=== PATIENT | female | born 1945 | race African-American/Black ===

== ENCOUNTER 2016-07-05 17:11 | Inpatient (IN) | payer OTHER ==
[~2016-07-05] VITALS: Ht 149.9 cm; Wt 124.0 kg
[~2016-07-05 17:11] MED LIST: ADVAIR 100/501 DISK; ADVAIR 250/501 DISK IH; ALDACTONE12.5 MG PO; ALPHAGAN P100 DROP/5 BOTH EYES; ASPIRIN325 MG PO; AZOPT 1% O200 DROP/1 BOTH EYES; AZOPT 1% O200 DROP/1 RIGHT EYE; Advair HFA 115/21 IH; Aldactone PO; DUONEB 2.5-0.5 M3 ML IH; HUMULIN N100 UNIT/2 SC; HUMULIN N100 UNITS/ SC; HYDROCODON-ACE1 EAC7 PO; K-DUR20 MEQ PO; KEFLEX500 MG PO; LASIX40 MG PO; LASIX80 MG PO; LUMIGAN 0.50 DROP/2.; LUMIGAN 0.50 DROP/2. BOTH EYES; LUMIGAN 0.50 DROP/22 BOTH EYES; LYRICA50 MG PO; MACROBID100 MG PO; NOVOLIN N100 UNIT/1 SQ; NOVOLIN N100 UNITS/ SC; NOVOLIN,HU100 UNITS/ SC; NOVOLOG100 UNIT/3 SQ; PREDNISONE10 MG PO; PREDNISONE5 MG PO; PRILOSEC20 MG PO; PRILOSEC40 MG PO; PROAIR HFA8.5 GM IH; PROVENTIL,2.5 MG/0.5 IH; PriLOSEC PO; Proventil,Ventolin 0 IH; TRAVATAN 0.004%5 ML BOTH EYES; Tylenol Regular Stre PO; VERAPAMIL HCL240 MG PO; VICODIN 5-5001 EACH PO; Vicodin,Lortab 5/500 PO; Zithromax
[2016-07-05 18:59] LABS: CHLORIDE 105 mEq/L (99-109); POTASSIUM 3.2 mEq/L (3.7-5.4); SODIUM 143 mEq/L (136-147)
[2016-07-05 19:01] LABS: GLUCOSE 135 mg/dL (70-99)
[2016-07-05 19:02] LABS: ANION GAP 12 MEQ/L (2-14)
[2016-07-05 19:03] LABS: TOTAL BILIRUBIN 0.6 mg/dL (0.0-1.0)
[2016-07-05 19:04] LABS: ALKALINE PHOSPHATASE 141 IU/L (3-129)
[2016-07-05 19:05] LABS: GFR ESTIMATE (CALCULATED) > 59 mL/min/
[2016-07-05 19:06] LABS: UREA NITROGEN (BUN) 11 mg/dL (9-23)
[2016-07-05 19:10] LABS: TROP-I INTERPRETATION NEGATIVE; TROPONIN-I < 0.01 ng/mL (0.0-0.30)
[2016-07-05 19:12] LABS: EOSINOPHIL (%) 1.1 % (0-5); EOSINOPHIL COUNT 0.1 K/uL (0-0.3); HEMATOCRIT 29.5 % (36.0-46.0); IMMATURE GRANULOCYTE (%) 0.5 % (0.0-0.7); IMMATURE GRANULOCYTE COUNT 0.1 K/uL; LYMPHOCYTE COUNT 1.3 K/uL (1.0-2.8); MCH 20.1 PG (29.0-34.0); MCHC 30.2 G/DL (30.0-36.0); MCV 66.7 FL (83-99); MEAN PLAT.VOLUME 11.2 uM^3 (9.5-12.4); MONOCYTE (%) 6.9 % (3-12); MONOCYTE COUNT 0.9 K/uL (0-0.8); NEUTROPHIL (%) 81.2 % (45-76); PLATELET COUNT 299 K/uL (156-360); RBC DIS.WIDTH-CV 19.5 % (11.8-14.6); RBC DIS.WIDTH-SD 45.6 % (39-53); RED BLOOD COUNT 4.42 M/uL (3.80-5.20); WHITE BLOOD COUNT 12.4 K/uL (4.1-10.2)
[2016-07-05 21:18] LABS: D-DIMER ELISA 0.71 mg/L FEU (< 0.57)
[2016-07-05] MEDS ORDERED: PREDNISONE5 MG PO (22:20)
[2016-07-05] MEDS ORDERED: HUMULIN N100 UNITS/ SC ×2 (22:20)
[2016-07-05] MEDS ORDERED: LATANOPROST2.5 ML BOTH EYES (22:22)
[2016-07-05] MEDS ORDERED: K-DUR20 MEQ PO (22:23)
[2016-07-05] MEDS ORDERED: ALDACTONE25 MG PO (22:24)
[2016-07-05] MEDS ORDERED: HUMALOG100 UNIT/2 SC (22:25)
[2016-07-06] VITALS (7 sets, daily range): BP systolic 111–167; BP diastolic 55–72
[2016-07-06 05:35] LABS: TROP-I INTERPRETATION NEGATIVE; TROPONIN-I < 0.01 ng/mL (0.0-0.30)
[2016-07-06 05:39] LABS: ALKALINE PHOSPHATASE 121 IU/L (3-129); ANION GAP 8 MEQ/L (2-14); CHLORIDE 105 MEQ/L (99-109); GFR ESTIMATE (CALCULATED) > 59 mL/min/; SAMPLE HEMOLYSIS CHECK 2; SAMPLE ICTERIC CHECK 0; SAMPLE LIPEMIA CHECK 0; SODIUM 142 MEQ/L (136-147); TOTAL BILIRUBIN 0.6 MG/DL (0.0-1.0); UREA NITROGEN (BUN) 11 mg/dL (9-23)
[2016-07-06 05:50] LABS: GLUCOSE 245 mg/dL (70-99); POTASSIUM 4.1 MEQ/L (3.7-5.4)
[2016-07-06 06:21] LABS: HEMATOCRIT 26.2 % (36.0-46.0); MCH 20.2 PG (29.0-34.0); MCHC 30.2 G/DL (30.0-36.0); RBC DIS.WIDTH-CV 19.3 % (11.8-14.6); RBC DIS.WIDTH-SD 45.5 % (39-53); RED BLOOD COUNT 3.91 M/uL (3.80-5.20); WHITE BLOOD COUNT 11.4 K/uL (4.1-10.2)
[2016-07-06 06:56] LABS: PLATELET COUNT 264 K/uL (156-360)
[2016-07-06 07:07] LABS: POINT-OF-CARE METER ID UU14149397
[2016-07-06 11:49] LABS: POINT-OF-CARE METER ID UU14149397
[2016-07-06 13:19] LABS: TROP-I INTERPRETATION NEGATIVE; TROPONIN-I 0.02 ng/mL (0.0-0.30)
[2016-07-06 16:40] LABS: POINT-OF-CARE METER ID UU14149397
[2016-07-06 21:38] LABS: POINT-OF-CARE METER ID UU14149397
[2016-07-07 04:00] VITALS: BP 133/63
[2016-07-07 07:02] LABS: POINT-OF-CARE METER ID UU14188577
[2016-07-07 08:17] VITALS: BP 153/62
[2016-07-07 11:44] VITALS: BP 140/77
[2016-07-07 16:10] VITALS: BP 121/56
[2016-07-07 19:24] VITALS: BP 148/68
[2016-07-07 23:34] VITALS: BP 157/66
[2016-07-08 04:00] VITALS: BP 123/60
[2016-07-08 05:45] LABS: EOSINOPHIL (%) 1.5 % (0-5); EOSINOPHIL COUNT 0.2 K/uL (0-0.3); HEMATOCRIT 26.8 % (36.0-46.0); IMMATURE GRANULOCYTE (%) 0.8 % (0.0-0.7); IMMATURE GRANULOCYTE COUNT 0.1 K/uL; INSTRUMENT ABS NEUTROPHIL CT 9.5 K/uL; LYMPHOCYTE COUNT 1.6 K/uL (1.0-2.8); MCH 19.9 PG (29.0-34.0); MCHC 29.1 G/DL (30.0-36.0); MCV 68.4 FL (83-99); MEAN PLAT.VOLUME 11.1 uM^3 (9.5-12.4); MONOCYTE COUNT 1.6 K/uL (0-0.8); NEUTROPHIL (%) 73.4 % (45-76); NEUTROPHIL COUNT 9.5 K/uL (1.8-6.4); NRBC (%) 0.3 /100 WBC (0-0); PLATELET COUNT 280 K/uL (156-360); RBC DIS.WIDTH-SD 46.5 % (39-53); RED BLOOD COUNT 3.92 M/uL (3.80-5.20)
[2016-07-08 06:06] LABS: ANION GAP 8 MEQ/L (2-14); CHLORIDE 99 MEQ/L (99-109); GFR ESTIMATE (CALCULATED) 57 mL/min/; GLUCOSE 64 mg/dL (70-99); SAMPLE HEMOLYSIS CHECK 0; SAMPLE ICTERIC CHECK 0; SAMPLE LIPEMIA CHECK 0; SODIUM 136 MEQ/L (136-147); UREA NITROGEN (BUN) 18 mg/dL (9-23)
[2016-07-08 09:28] VITALS: BP 124/57
[2016-07-08 16:51] VITALS: BP 139/68
[2016-07-08 19:37] VITALS: BP 171/73
[2016-07-08 23:23] VITALS: BP 165/79
[2016-07-09 03:00] VITALS: BP 168/69
[2016-07-09 06:00] LABS: EOSINOPHIL (%) 1.2 % (0-5); EOSINOPHIL COUNT 0.2 K/uL (0-0.3); HEMATOCRIT 26.9 % (36.0-46.0); IMMATURE GRANULOCYTE (%) 0.8 % (0.0-0.7); IMMATURE GRANULOCYTE COUNT 0.1 K/uL; INSTRUMENT ABS NEUTROPHIL CT 10.4 K/uL; MCH 20.4 PG (29.0-34.0); MCHC 29.7 G/DL (30.0-36.0); MCV 68.4 FL (83-99); MEAN PLAT.VOLUME 10.9 uM^3 (9.5-12.4); MONOCYTE COUNT 1.2 K/uL (0-0.8); NEUTROPHIL (%) 81.1 % (45-76); NEUTROPHIL COUNT 10.4 K/uL (1.8-6.4); NRBC (%) 0.5 /100 WBC (0-0); PLATELET COUNT 283 K/uL (156-360); RBC DIS.WIDTH-CV 18.9 % (11.8-14.6); RBC DIS.WIDTH-SD 46.7 % (39-53); RED BLOOD COUNT 3.93 M/uL (3.80-5.20); WHITE BLOOD COUNT 12.8 K/uL (4.1-10.2)
[2016-07-09 06:25] LABS: ANION GAP 7 MEQ/L (2-14); CHLORIDE 95 MEQ/L (99-109); GFR ESTIMATE (CALCULATED) > 59 mL/min/; POTASSIUM 4.8 MEQ/L (3.7-5.4); SAMPLE HEMOLYSIS CHECK 0; SAMPLE ICTERIC CHECK 0; SAMPLE LIPEMIA CHECK 0; SODIUM 136 MEQ/L (136-147); UREA NITROGEN (BUN) 19 mg/dL (9-23)
[2016-07-09 06:28] LABS: GLUCOSE 189 mg/dL (70-99)
[2016-07-09 10:23] VITALS: BP 135/54
[2016-07-09 11:48] VITALS: BP 134/58
[2016-07-09] MEDS ORDERED: KEFLEX500 MG PO (12:46)
[2016-07-09] MEDS ORDERED: MUPIROCIN15 GM TP (12:46)
== END 2016-07-09 15:46 | disposition home or self-care (01) | DRG 313 ==
LOC: EME 17:11 → EDOF 21:27 → 3EAST 21:27
PROVIDERS: Emergency Medicine; Internal Medicine
DX: R07.89 Other chest pain (principal); L03.115 Cellulitis of right lower limb; L03.116 Cellulitis of left lower limb; E11.649 Type 2 diabetes mellitus with hypoglycemia without coma; I13.10 Hypertensive heart and chronic kidney disease without heart failure, with stage 1 through stage 4 chronic kidney disease, or unspecified chronic kidney disease; I50.9 Heart failure, unspecified; E11.22 Type 2 diabetes mellitus with diabetic chronic kidney disease; N18.9 Chronic kidney disease, unspecified; F32.9 Major depressive disorder, single episode, unspecified; I87.2 Venous insufficiency (chronic) (peripheral); L97.819 Non-pressure chronic ulcer of other part of right lower leg with unspecified severity; G47.33 Obstructive sleep apnea (adult) (pediatric); J44.9 Chronic obstructive pulmonary disease, unspecified; I25.10 Atherosclerotic heart disease of native coronary artery without angina pectoris; J45.909 Unspecified asthma, uncomplicated; D64.9 Anemia, unspecified; F41.9 Anxiety disorder, unspecified; E78.5 Hyperlipidemia, unspecified; E87.6 Hypokalemia; K21.9 Gastro-esophageal reflux disease without esophagitis; E66.01 Morbid (severe) obesity due to excess calories; I89.0 Lymphedema, not elsewhere classified; M19.90 Unspecified osteoarthritis, unspecified site; I25.2 Old myocardial infarction; Z79.4 Long term (current) use of insulin; Z79.82 Long term (current) use of aspirin; Z68.43 Body mass index [BMI] 50.0-59.9, adult; Z91.041 Radiographic dye allergy status; Z87.891 Personal history of nicotine dependence
CPT/HCPCS: 71010; 73590; 80048; 80053; 82948; 83605; 83880; 84484; 85025; 85027; 85379; 87040; 93005; 94640; 94640 76; 94760; 94799; 99202; 99281; 99285; J0295; J0696; J1650; J1815; J2405; J7050; J7512

== ENCOUNTER 2016-08-14 11:37 | Inpatient (IN) | payer OTHER ==
[~2016-08-14] VITALS: Ht 149.9 cm; Wt 114.2 kg
[2016-08-14 11:05] VITALS: BP 170/76
[~2016-08-14 11:37] MED LIST changes: +ALDACTONE25 MG PO; +HUMALOG100 UNIT/2 SC; +LATANOPROST2.5 ML BOTH EYES; +MUPIROCIN15 GM TP
[2016-08-14 13:29] LABS: POINT-OF-CARE METER ID UU13113702
[2016-08-14 13:41] LABS: CHLORIDE 103 mEq/L (99-109); POTASSIUM 3.1 mEq/L (3.7-5.4); SODIUM 139 mEq/L (136-147)
[2016-08-14 13:43] LABS: GLUCOSE 175 mg/dL (70-99)
[2016-08-14 13:44] LABS: ANION GAP 9 MEQ/L (2-14)
[2016-08-14 13:46] LABS: HEMATOCRIT 29.9 % (36.0-46.0); MCH 19.7 PG (29.0-34.0); MCHC 30.1 G/DL (30.0-36.0); MCV 65.4 FL (83-99); RBC DIS.WIDTH-CV 18.6 % (11.8-14.6); RBC DIS.WIDTH-SD 42.5 % (39-53); RED BLOOD COUNT 4.57 M/uL (3.80-5.20); WHITE BLOOD COUNT 12.7 K/uL (4.1-10.2)
[2016-08-14 13:47] LABS: GFR ESTIMATE (CALCULATED) > 59 mL/min/; UREA NITROGEN (BUN) 21 mg/dL (9-23)
[2016-08-14 13:51] LABS: TROP-I INTERPRETATION NEGATIVE; TROPONIN-I < 0.01 ng/mL (0.0-0.30)
[2016-08-14 14:50] LABS: PLAT.SUFFICIENCY ADEQUATE; PLATELET COUNT 291 K/uL (156-360)
[2016-08-14 17:00] LABS: POINT-OF-CARE METER ID UU13113702
[2016-08-14 20:37] LABS: TROP-I INTERPRETATION NEGATIVE; TROPONIN-I < 0.01 ng/mL (0.0-0.30)
[2016-08-14 23:12] VITALS: BP 170/76
[2016-08-15 04:05] VITALS: BP 169/73
[2016-08-15 06:19] LABS: TROP-I INTERPRETATION NEGATIVE; TROPONIN-I < 0.01 ng/mL (0.0-0.30)
[2016-08-15 07:15] LABS: HEMATOCRIT 30.9 % (36.0-46.0); MCH 19.5 PG (29.0-34.0); MCHC 30.1 G/DL (30.0-36.0); MCV 64.8 FL (83-99); NRBC (%) 0.2 /100 WBC (0-0); RBC DIS.WIDTH-CV 18.2 % (11.8-14.6); RBC DIS.WIDTH-SD 41.1 % (39-53); RED BLOOD COUNT 4.77 M/uL (3.80-5.20); WHITE BLOOD COUNT 12.9 K/uL (4.1-10.2)
[2016-08-15 07:16] LABS: ANION GAP 13 MEQ/L (2-14); CHLORIDE 101 MEQ/L (99-109); GFR ESTIMATE (CALCULATED) > 59 mL/min/; SAMPLE HEMOLYSIS CHECK 0; SAMPLE ICTERIC CHECK 0; SAMPLE LIPEMIA CHECK 0; SODIUM 144 MEQ/L (136-147); UREA NITROGEN (BUN) 16 mg/dL (9-23)
[2016-08-15 07:17] LABS: GLUCOSE 104 mg/dL (70-99); POTASSIUM 4.1 MEQ/L (3.7-5.4)
[2016-08-15 07:26] VITALS: BP 147/68
[2016-08-15 07:42] LABS: MEAN PLAT.VOLUME 11.2 uM^3 (9.5-12.4); PLAT.SUFFICIENCY ADEQUATE; PLATELET COUNT 303 K/uL (156-360)
[2016-08-15 11:57] VITALS: BP 116/51
[2016-08-15 16:07] VITALS: BP 112/51
[2016-08-15 19:53] VITALS: BP 119/58
[2016-08-16 00:28] VITALS: BP 120/58
[2016-08-16 05:47] VITALS: BP 134/78
[2016-08-16 06:17] LABS: EOSINOPHIL (%) 0.7 % (0-5); EOSINOPHIL COUNT 0.1 K/uL (0-0.3); IMMATURE GRANULOCYTE (%) 0.6 % (0.0-0.7); IMMATURE GRANULOCYTE COUNT 0.1 K/uL; INSTRUMENT ABS NEUTROPHIL CT 11.1 K/uL; LYMPHOCYTE COUNT 1.2 K/uL (1.0-2.8); MCH 19.8 PG (29.0-34.0); MCV 63.9 FL (83-99); MONOCYTE (%) 12.1 % (3-12); MONOCYTE COUNT 1.7 K/uL (0-0.8); NEUTROPHIL (%) 77.9 % (45-76); NEUTROPHIL COUNT 11.1 K/uL (1.8-6.4); PLATELET COUNT 318 K/uL (156-360); RBC DIS.WIDTH-CV 17.6 % (11.8-14.6); RBC DIS.WIDTH-SD 39.5 % (39-53); RED BLOOD COUNT 4.54 M/uL (3.80-5.20); WHITE BLOOD COUNT 14.2 K/uL (4.1-10.2)
[2016-08-16 06:21] LABS: ANION GAP 8 MEQ/L (2-14); CHLORIDE 93 MEQ/L (99-109); GFR ESTIMATE (CALCULATED) > 59 mL/min/; IRON 24 MCG/DL (35-150); POTASSIUM 3.6 MEQ/L (3.7-5.4); SAMPLE HEMOLYSIS CHECK 0; SAMPLE ICTERIC CHECK 0; SAMPLE LIPEMIA CHECK 0; SODIUM 138 MEQ/L (136-147); UREA NITROGEN (BUN) 17 mg/dL (9-23)
[2016-08-16 06:26] LABS: GLUCOSE 216 mg/dL (70-99)
[2016-08-16 08:03] LABS: POINT-OF-CARE USER ID NUTSLF44
[2016-08-16 08:15] VITALS: BP 158/70
[2016-08-16 12:12] VITALS: BP 131/60
[2016-08-16 12:18] LABS: POINT-OF-CARE USER ID NUTSLF44
[2016-08-16 12:33] LABS: POINT-OF-CARE METER ID UU13113781
[2016-08-16 16:14] VITALS: BP 119/58
[2016-08-16 20:30] VITALS: BP 129/62
[2016-08-17] VITALS (7 sets, daily range): BP systolic 103–130; BP diastolic 53–78
[2016-08-17 05:53] LABS: ANION GAP 11 MEQ/L (2-14); CHLORIDE 93 MEQ/L (99-109); GFR ESTIMATE (CALCULATED) > 59 mL/min/; GLUCOSE 224 mg/dL (70-99); POTASSIUM 3.8 MEQ/L (3.7-5.4); SAMPLE HEMOLYSIS CHECK 0; SAMPLE ICTERIC CHECK 0; SAMPLE LIPEMIA CHECK 0; SODIUM 136 MEQ/L (136-147); UREA NITROGEN (BUN) 17 mg/dL (9-23)
[2016-08-17 06:11] LABS: EOSINOPHIL (%) 0.8 % (0-5); EOSINOPHIL COUNT 0.1 K/uL (0-0.3); HEMATOCRIT 28.9 % (36.0-46.0); IMMATURE GRANULOCYTE (%) 0.8 % (0.0-0.7); IMMATURE GRANULOCYTE COUNT 0.1 K/uL; INSTRUMENT ABS NEUTROPHIL CT 10.9 K/uL; LYMPHOCYTE COUNT 1.6 K/uL (1.0-2.8); MCH 19.9 PG (29.0-34.0); MCHC 31.1 G/DL (30.0-36.0); MCV 63.8 FL (83-99); MEAN PLAT.VOLUME 10.7 uM^3 (9.5-12.4); MONOCYTE (%) 10.7 % (3-12); MONOCYTE COUNT 1.5 K/uL (0-0.8); NEUTROPHIL (%) 76.6 % (45-76); NEUTROPHIL COUNT 10.9 K/uL (1.8-6.4); NRBC (%) 0.1 /100 WBC (0-0); PLATELET COUNT 298 K/uL (156-360); RBC DIS.WIDTH-CV 17.8 % (11.8-14.6); RBC DIS.WIDTH-SD 39.7 % (39-53); RED BLOOD COUNT 4.53 M/uL (3.80-5.20); WHITE BLOOD COUNT 14.3 K/uL (4.1-10.2)
[2016-08-17 08:32] LABS: FERRITIN 148 NG/ML (10-291)
[2016-08-17 09:03] LABS: POINT-OF-CARE METER ID UU13113781
[2016-08-17 20:48] LABS: POINT-OF-CARE METER ID UU13113698
[2016-08-18 03:31] VITALS: BP 135/62
[2016-08-18 07:24] LABS: HEMATOCRIT 29.1 % (36.0-46.0); MCH 20.1 PG (29.0-34.0); MCHC 30.9 G/DL (30.0-36.0); MEAN PLAT.VOLUME 10.6 uM^3 (9.5-12.4); NRBC (%) 0.4 /100 WBC (0-0); PLATELET COUNT 308 K/uL (156-360); RBC DIS.WIDTH-CV 18.3 % (11.8-14.6); RBC DIS.WIDTH-SD 41.2 % (39-53); RED BLOOD COUNT 4.48 M/uL (3.80-5.20); WHITE BLOOD COUNT 13.7 K/uL (4.1-10.2)
[2016-08-18 07:33] LABS: POINT-OF-CARE METER ID UU14162508
[2016-08-18 07:42] LABS: ANION GAP 8 MEQ/L (2-14); CHLORIDE 99 MEQ/L (99-109); GFR ESTIMATE (CALCULATED) > 59 mL/min/; POTASSIUM 3.9 MEQ/L (3.7-5.4); SAMPLE HEMOLYSIS CHECK 0; SAMPLE ICTERIC CHECK 0; SAMPLE LIPEMIA CHECK 0; SODIUM 142 MEQ/L (136-147); UREA NITROGEN (BUN) 14 mg/dL (9-23)
[2016-08-18 07:43] LABS: GLUCOSE 45 mg/dL (70-99)
[2016-08-18 07:55] VITALS: BP 127/60
[2016-08-18 08:50] LABS: POINT-OF-CARE METER ID UU14162508
[2016-08-18 09:44] LABS: POINT-OF-CARE METER ID UU14162508
[2016-08-18 12:28] LABS: POINT-OF-CARE METER ID UU14162508
[2016-08-18 12:52] VITALS: BP 151/71
[2016-08-18 15:16] LABS: POINT-OF-CARE METER ID UU14162508
[2016-08-18 15:35] LABS: POINT-OF-CARE METER ID UU13113694
[2016-08-18 17:45] LABS: POINT-OF-CARE METER ID UU14162508
[2016-08-18 19:22] VITALS: BP 142/64
[2016-08-18 22:35] LABS: POINT-OF-CARE METER ID UU14162508
[2016-08-19 00:27] VITALS: BP 135/63
[2016-08-19 03:40] VITALS: BP 133/62
[2016-08-19 06:06] VITALS: BP 138/108
[2016-08-19 07:22] LABS: POINT-OF-CARE METER ID UU14162508
[2016-08-19 07:41] LABS: EOSINOPHIL (%) 1.7 % (0-5); EOSINOPHIL COUNT 0.2 K/uL (0-0.3); HEMATOCRIT 31.9 % (36.0-46.0); IMMATURE GRANULOCYTE (%) 0.8 % (0.0-0.7); IMMATURE GRANULOCYTE COUNT 0.1 K/uL; MCH 19.2 PG (29.0-34.0); MCHC 29.8 G/DL (30.0-36.0); MCV 64.4 FL (83-99); MEAN PLAT.VOLUME 10.3 uM^3 (9.5-12.4); MONOCYTE (%) 9.2 % (3-12); MONOCYTE COUNT 1.2 K/uL (0-0.8); NRBC (%) 0.9 /100 WBC (0-0); PLATELET COUNT 315 K/uL (156-360); RBC DIS.WIDTH-CV 18.3 % (11.8-14.6); RBC DIS.WIDTH-SD 39.6 % (39-53); RED BLOOD COUNT 4.95 M/uL (3.80-5.20); WHITE BLOOD COUNT 12.5 K/uL (4.1-10.2)
[2016-08-19 07:56] VITALS: BP 116/55
[2016-08-19 08:02] LABS: ANION GAP 8 MEQ/L (2-14); CHLORIDE 97 MEQ/L (99-109); GFR ESTIMATE (CALCULATED) > 59 mL/min/; POTASSIUM 3.8 MEQ/L (3.7-5.4); SAMPLE HEMOLYSIS CHECK 0; SAMPLE ICTERIC CHECK 0; SAMPLE LIPEMIA CHECK 0; SODIUM 139 MEQ/L (136-147); UREA NITROGEN (BUN) 14 mg/dL (9-23)
[2016-08-19 08:04] LABS: GLUCOSE 81 mg/dL (70-99)
[2016-08-19 11:13] VITALS: BP 118/56
[2016-08-19 11:26] LABS: POINT-OF-CARE METER ID UU14162508
[2016-08-19] MEDS ORDERED: PANTOPRAZOLE SO40 MG PO (11:56)
[2016-08-19] MEDS ORDERED: FEROSUL325 MG PO (11:56)
[2016-08-19] MEDS ORDERED: LISINOPRIL2.5 MG PO (11:56)
[2016-08-19] MEDS ORDERED: FUROSEMIDE80 MG PO (11:56)
== END 2016-08-19 13:30 | disposition home health service (06) | DRG 292 ==
LOC: EME 11:37 → 2EASTP 14:48 → 4EAST 14:48 → EDOF 14:48 → 4EAST 22:25 → 2EASTP 08-17 23:04
PROVIDERS: Emergency Medicine; Family Medicine; Internal Medicine Gastroenterology; Nurse Practitioner Family
DX: I50.30 Unspecified diastolic (congestive) heart failure (principal); D50.9 Iron deficiency anemia, unspecified; J44.9 Chronic obstructive pulmonary disease, unspecified; E66.01 Morbid (severe) obesity due to excess calories; Z68.43 Body mass index [BMI] 50.0-59.9, adult; E11.40 Type 2 diabetes mellitus with diabetic neuropathy, unspecified; E11.22 Type 2 diabetes mellitus with diabetic chronic kidney disease; I13.0 Hypertensive heart and chronic kidney disease with heart failure and stage 1 through stage 4 chronic kidney disease, or unspecified chronic kidney disease; I25.10 Atherosclerotic heart disease of native coronary artery without angina pectoris; L30.9 Dermatitis, unspecified; G47.33 Obstructive sleep apnea (adult) (pediatric); N18.9 Chronic kidney disease, unspecified; K21.9 Gastro-esophageal reflux disease without esophagitis; M19.90 Unspecified osteoarthritis, unspecified site; E87.6 Hypokalemia; I87.8 Other specified disorders of veins; F41.9 Anxiety disorder, unspecified; Z83.3 Family history of diabetes mellitus; I25.2 Old myocardial infarction
CPT/HCPCS: 71010; 71020; 80048; 82272; 82607; 82728; 82746; 82948; 83540; 84466; 84484; 85025; 85027; 88305; 88342 TC; 93005; 93306; 94660; 99202; 99281; 99285; J1650; J1756; J1815; J1940; J7050; J7512

== ENCOUNTER 2016-11-05 11:38 | Emergency (ER) | payer OTHER ==
[~2016-11-05] VITALS: Ht 149.9 cm; Wt 113.0 kg
[~2016-11-05 11:38] MED LIST changes: +FEROSUL325 MG PO; +FUROSEMIDE80 MG PO; +LISINOPRIL2.5 MG PO; +PANTOPRAZOLE SO40 MG PO
[2016-11-05 14:30] LABS: CHLORIDE 99 mEq/L (99-109); POTASSIUM 4.2 mEq/L (3.7-5.4); SODIUM 139 mEq/L (136-147)
[2016-11-05 14:32] LABS: GLUCOSE 202 mg/dL (70-99)
[2016-11-05 14:33] LABS: ANION GAP 11 MEQ/L (2-14); HEMATOCRIT 35.3 % (36.0-46.0); MCH 21.1 PG (29.0-34.0); MCHC 30.9 G/DL (30.0-36.0); MCV 68.3 FL (83-99); PLATELET COUNT 276 K/uL (156-360); RBC DIS.WIDTH-CV 24.4 % (11.8-14.6); RBC DIS.WIDTH-SD 57.3 % (39-53); RED BLOOD COUNT 5.17 M/uL (3.80-5.20); WHITE BLOOD COUNT 14.1 K/uL (4.1-10.2)
[2016-11-05 14:36] LABS: GFR ESTIMATE (CALCULATED) > 59 mL/min/; UREA NITROGEN (BUN) 22 mg/dL (9-23)
[2016-11-05] MEDS ORDERED: KEFLEX500 MG PO (14:50)
[2016-11-05 15:15] VITALS: BP 151/91
== END 2016-11-05 15:17 | disposition home or self-care (01) ==
LOC: EME 11:38
PROVIDERS: Nurse Practitioner Family
DX: L03.116 Cellulitis of left lower limb (principal); R60.1 Generalized edema; E66.9 Obesity, unspecified; Z86.718 Personal history of other venous thrombosis and embolism; E11.22 Type 2 diabetes mellitus with diabetic chronic kidney disease; I13.0 Hypertensive heart and chronic kidney disease with heart failure and stage 1 through stage 4 chronic kidney disease, or unspecified chronic kidney disease; N18.9 Chronic kidney disease, unspecified; I50.9 Heart failure, unspecified; Z79.4 Long term (current) use of insulin; Z79.82 Long term (current) use of aspirin; J44.9 Chronic obstructive pulmonary disease, unspecified; I25.2 Old myocardial infarction; Z88.6 Allergy status to analgesic agent; Z91.041 Radiographic dye allergy status
CPT/HCPCS: 80048; 83605; 85027; 87040; 99281; 99284

== ENCOUNTER 2017-03-23 16:29 | Inpatient (IN) | payer OTHER ==
[~2017-03-23] VITALS: Ht 149.9 cm; Wt 118.6 kg
[2017-03-23 18:28] LABS: CHLORIDE 106 mEq/L (99-109); HEMATOCRIT 29.5 % (36.0-46.0); HEMOGLOBIN 9.3 G/DL (11.9-15.5); MCH 22.3 PG (29.0-34.0); MCHC 31.5 G/DL (30.0-36.0); MCV 70.7 FL (83-99); PLATELET COUNT 260 K/uL (156-360); POTASSIUM 3.4 mEq/L (3.7-5.4); RBC DIS.WIDTH-CV 17.3 % (11.8-14.6); RBC DIS.WIDTH-SD 43.5 % (39-53); RED BLOOD COUNT 4.17 M/uL (3.80-5.20); SODIUM 140 mEq/L (136-147); WHITE BLOOD COUNT 13.1 K/uL (4.1-10.2)
[2017-03-23 18:29] LABS: GLUCOSE 259 mg/dL (70-99)
[2017-03-23 18:33] LABS: CREATININE 0.8 mg/dL (0.6-1.3); GFR ESTIMATE (CALCULATED) > 59 mL/min/
[2017-03-23 18:34] LABS: UREA NITROGEN (BUN) 14 mg/dL (9-23)
[2017-03-23 18:40] LABS: TROP-I INTERPRETATION NEGATIVE; TROPONIN-I < 0.01 ng/mL (0.0-0.30)
[2017-03-23] MEDS ORDERED: LISINOPRIL2.5 MG PO (20:36)
[2017-03-23] MEDS ORDERED: IRON325 M1 PO (20:36)
[2017-03-23] MEDS ORDERED: HYDROCODON-ACE1 EAC7 PO (20:38)
[2017-03-23] MEDS ORDERED: FUROSEMIDE80 MG PO (20:38)
[2017-03-23] MEDS ORDERED: PROTONIX40 MG PO (20:40)
[2017-03-23] MEDS ORDERED: HUMALOG100 UNIT/1 SC (20:42)
[2017-03-24] VITALS (7 sets, daily range): BP systolic 138–192; BP diastolic 59–90
[2017-03-24 08:02] LABS: BASOPHIL (%) 0.1 % (0-1); EOSINOPHIL (%) 0.1 % (0-5); HEMATOCRIT 30.4 % (36.0-46.0); HEMOGLOBIN 9.5 G/DL (11.9-15.5); IMMATURE GRANULOCYTE (%) 0.7 % (0.0-0.7); LYMPHOCYTE COUNT 0.6 K/uL (1.0-2.8); MCH 22.4 PG (29.0-34.0); MCHC 31.3 G/DL (30.0-36.0); MCV 71.7 FL (83-99); MONOCYTE (%) 4.3 % (3-12); MONOCYTE COUNT 0.5 K/uL (0-0.8); NEUTROPHIL (%) 89.8 % (45-76); NEUTROPHIL COUNT 11.1 K/uL (1.8-6.4); NRBC (%) 0.2 /100 WBC (0-0); PLATELET COUNT 273 K/uL (156-360); RBC DIS.WIDTH-CV 17.3 % (11.8-14.6); RBC DIS.WIDTH-SD 44.1 % (39-53); RED BLOOD COUNT 4.24 M/uL (3.80-5.20); WHITE BLOOD COUNT 12.4 K/uL (4.1-10.2)
[2017-03-24 08:22] LABS: CHLORIDE 100 MEQ/L (99-109); CREATININE 0.7 MG/DL (0.6-1.3); GFR ESTIMATE (CALCULATED) > 59 mL/min/; GLUCOSE 234 mg/dL (70-99); POTASSIUM 3.7 MEQ/L (3.7-5.4); SODIUM 141 MEQ/L (136-147); UREA NITROGEN (BUN) 13 mg/dL (9-23)
[2017-03-25] VITALS (14 sets, daily range): BP systolic 100–189; BP diastolic 44–107
[2017-03-25 06:40] LABS: BASOPHIL (%) 0.1 % (0-1); EOSINOPHIL COUNT 0.1 K/uL (0-0.3); HEMATOCRIT 31.7 % (36.0-46.0); HEMOGLOBIN 9.6 G/DL (11.9-15.5); IMMATURE GRANULOCYTE (%) 0.4 % (0.0-0.7); LYMPHOCYTE (%) 7.7 % (15-42); LYMPHOCYTE COUNT 1.1 K/uL (1.0-2.8); MCH 21.8 PG (29.0-34.0); MCHC 30.3 G/DL (30.0-36.0); MCV 71.9 FL (83-99); MONOCYTE (%) 10.6 % (3-12); MONOCYTE COUNT 1.6 K/uL (0-0.8); NEUTROPHIL (%) 80.2 % (45-76); NEUTROPHIL COUNT 11.8 K/uL (1.8-6.4); PLATELET COUNT 249 K/uL (156-360); RBC DIS.WIDTH-CV 17.6 % (11.8-14.6); RBC DIS.WIDTH-SD 44.5 % (39-53); RED BLOOD COUNT 4.41 M/uL (3.80-5.20); WHITE BLOOD COUNT 14.7 K/uL (4.1-10.2)
[2017-03-25 06:48] LABS: CHLORIDE 101 mEq/L (99-109); SODIUM 144 mEq/L (136-147)
[2017-03-25 06:49] LABS: GLUCOSE 197 mg/dL (70-99)
[2017-03-25 06:52] LABS: BASE EXCESS 12.8 mEq/L (-3 to +3); BICARBONATE 38.4 mEq/L (22-26); CARBOXY HGB 1.7 % (0-5); METHEMOGLOBIN 1.4 % (0-1.5); PCO2 54 mm Hg (35-45); PO2 82 mm Hg (80-100); pH 7.46 (7.35-7.45)
[2017-03-25 06:53] LABS: COMMENTS - BLOOD GASES C+; MODE RA; SITE LR
[2017-03-25 06:53] LABS: CREATININE 0.8 mg/dL (0.6-1.3); GFR ESTIMATE (CALCULATED) > 59 mL/min/
[2017-03-25 06:54] LABS: POTASSIUM 2.8 mEq/L (3.7-5.4); UREA NITROGEN (BUN) 17 mg/dL (9-23)
[2017-03-25 07:19] LABS: TROP-I INTERPRETATION NEGATIVE; TROPONIN-I < 0.01 ng/mL (0.0-0.30)
[2017-03-25 07:31] LABS: ALBUMIN 3.7 g/dL (3.2-4.8)
[2017-03-25 07:34] LABS: TOTAL PROTEIN 6.4 g/dL (6.4-8.3)
[2017-03-25 07:35] LABS: TOTAL BILIRUBIN 0.6 mg/dL (0.0-1.0)
[2017-03-25 07:37] LABS: ALKALINE PHOSPHATASE 137 IU/L (3-129)
[2017-03-25 07:39] LABS: AST (GOT) 13 IU/L (2-34); DIRECT BILIRUBIN 0.3 mg/dL (0.0-0.3)
[2017-03-25 07:40] LABS: ALT (GPT) 27 IU/L (3-49)
[2017-03-26 00:43] VITALS: BP 151/67
[2017-03-26 04:09] VITALS: BP 170/72
[2017-03-26 07:01] LABS: BASOPHIL (%) 0.2 % (0-1); EOSINOPHIL (%) 0.8 % (0-5); EOSINOPHIL COUNT 0.1 K/uL (0-0.3); HEMOGLOBIN 9.7 G/DL (11.9-15.5); IMMATURE GRANULOCYTE (%) 0.7 % (0.0-0.7); LYMPHOCYTE (%) 8.9 % (15-42); LYMPHOCYTE COUNT 1.3 K/uL (1.0-2.8); MCH 22.2 PG (29.0-34.0); MCHC 31.3 G/DL (30.0-36.0); MCV 70.9 FL (83-99); MONOCYTE COUNT 1.6 K/uL (0-0.8); NEUTROPHIL (%) 78.4 % (45-76); NEUTROPHIL COUNT 11.5 K/uL (1.8-6.4); PLATELET COUNT 255 K/uL (156-360); RBC DIS.WIDTH-CV 17.2 % (11.8-14.6); RED BLOOD COUNT 4.37 M/uL (3.80-5.20); WHITE BLOOD COUNT 14.7 K/uL (4.1-10.2)
[2017-03-26 07:10] LABS: CHLORIDE 96 MEQ/L (99-109); CREATININE 0.8 MG/DL (0.6-1.3); GFR ESTIMATE (CALCULATED) > 59 mL/min/; POTASSIUM 3.1 MEQ/L (3.7-5.4); SODIUM 142 MEQ/L (136-147); UREA NITROGEN (BUN) 15 mg/dL (9-23)
[2017-03-26 07:15] LABS: GLUCOSE 105 mg/dL (70-99)
[2017-03-26 08:37] VITALS: BP 146/66
[2017-03-26 16:28] VITALS: BP 108/53
[2017-03-26 20:30] VITALS: BP 127/60
[2017-03-27 00:04] VITALS: BP 155/69
[2017-03-27 03:53] VITALS: BP 123/60
[2017-03-27 04:56] LABS: CHLORIDE 96 mEq/L (99-109); SODIUM 139 mEq/L (136-147)
[2017-03-27 04:59] LABS: GLUCOSE 248 mg/dL (70-99); POTASSIUM 3.8 mEq/L (3.7-5.4)
[2017-03-27 05:02] LABS: CREATININE 0.9 mg/dL (0.6-1.3); GFR ESTIMATE (CALCULATED) > 59 mL/min/; UREA NITROGEN (BUN) 17 mg/dL (9-23)
[2017-03-27 08:31] VITALS: BP 144/66
[2017-03-27 16:49] VITALS: BP 110/55
[2017-03-28 00:17] VITALS: BP 136/61
[2017-03-28 07:34] VITALS: BP 122/60
[2017-03-28 07:45] LABS: CHLORIDE 91 MEQ/L (99-109); CREATININE 1.2 MG/DL (0.6-1.3); GFR ESTIMATE (CALCULATED) 57 mL/min/; GLUCOSE 206 mg/dL (70-99); POTASSIUM 4.1 MEQ/L (3.7-5.4); SODIUM 134 MEQ/L (136-147); UREA NITROGEN (BUN) 22 mg/dL (9-23)
[2017-03-28 18:36] VITALS: BP 103/53
[2017-03-28 23:25] VITALS: BP 114/56
[2017-03-29 06:25] LABS: BASOPHIL (%) 0.1 % (0-1); EOSINOPHIL (%) 1.3 % (0-5); EOSINOPHIL COUNT 0.2 K/uL (0-0.3); HEMATOCRIT 29.1 % (36.0-46.0); HEMOGLOBIN 9.1 G/DL (11.9-15.5); IMMATURE GRANULOCYTE (%) 0.6 % (0.0-0.7); LYMPHOCYTE COUNT 1.4 K/uL (1.0-2.8); MCH 21.4 PG (29.0-34.0); MCHC 31.3 G/DL (30.0-36.0); MCV 68.5 FL (83-99); MONOCYTE (%) 10.4 % (3-12); MONOCYTE COUNT 1.5 K/uL (0-0.8); NEUTROPHIL (%) 77.6 % (45-76); NEUTROPHIL COUNT 11.1 K/uL (1.8-6.4); PLATELET COUNT 252 K/uL (156-360); RBC DIS.WIDTH-CV 16.2 % (11.8-14.6); RBC DIS.WIDTH-SD 39.8 % (39-53); RED BLOOD COUNT 4.25 M/uL (3.80-5.20); WHITE BLOOD COUNT 14.4 K/uL (4.1-10.2)
[2017-03-29 06:40] LABS: CHLORIDE 91 MEQ/L (99-109); GFR ESTIMATE (CALCULATED) 36 mL/min/; GLUCOSE 164 mg/dL (70-99); POTASSIUM 3.7 MEQ/L (3.7-5.4); SODIUM 136 MEQ/L (136-147); UREA NITROGEN (BUN) 30 mg/dL (9-23)
[2017-03-29 06:45] LABS: CREATININE 1.8 MG/DL (0.6-1.3)
[2017-03-29 07:30] VITALS: BP 122/60
[2017-03-29] MEDS ORDERED: NOVOLIN N100 UNITS/ SC (12:59)
[2017-03-29 16:43] VITALS: BP 110/50
== END 2017-03-29 18:22 | disposition home health service (06) | DRG 291 ==
LOC: EME 16:29 → EDOF 21:31 → 4SOUTH 21:31 → 4WEST 21:31 → 2EASTP 21:31 → ENRESERV 21:32 → 2EASTP 03-24 00:36 → ENRESERV 03-25 06:55 → CANRESERV 03-25 06:55 → ENRESERV 03-25 06:58 → 4WEST 03-25 07:19 → ENRESERV 03-25 07:19 → 4WEST 03-25 19:36 → ENRESERV 03-25 19:37 → 4SOUTH 03-26 00:13
PROVIDERS: Emergency Medicine; Family Medicine; Hospitalist
PROC: 5A09357 Assistance with Respiratory Ventilation, Less than 24 Consecutive Hours, Continuous Positive Airway Pressure (ICD-10-PCS; principal; 2017-03-25)
DX: I13.0 Hypertensive heart and chronic kidney disease with heart failure and stage 1 through stage 4 chronic kidney disease, or unspecified chronic kidney disease (principal); I50.33 Acute on chronic diastolic (congestive) heart failure; J81.0 Acute pulmonary edema; Z68.43 Body mass index [BMI] 50.0-59.9, adult; E66.01 Morbid (severe) obesity due to excess calories; G47.33 Obstructive sleep apnea (adult) (pediatric); I25.10 Atherosclerotic heart disease of native coronary artery without angina pectoris; E11.22 Type 2 diabetes mellitus with diabetic chronic kidney disease; D63.1 Anemia in chronic kidney disease; E11.622 Type 2 diabetes mellitus with other skin ulcer; R09.02 Hypoxemia; E87.6 Hypokalemia; E11.65 Type 2 diabetes mellitus with hyperglycemia; I87.8 Other specified disorders of veins; E11.621 Type 2 diabetes mellitus with foot ulcer; E78.00 Pure hypercholesterolemia, unspecified; M19.90 Unspecified osteoarthritis, unspecified site; J44.9 Chronic obstructive pulmonary disease, unspecified; K21.9 Gastro-esophageal reflux disease without esophagitis; F41.9 Anxiety disorder, unspecified; Z91.013 Allergy to seafood; I25.2 Old myocardial infarction; Z88.5 Allergy status to narcotic agent; Z91.041 Radiographic dye allergy status; Z91.19 Patient's noncompliance with other medical treatment and regimen; Z79.4 Long term (current) use of insulin; Z82.49 Family history of ischemic heart disease and other diseases of the circulatory system; Z83.3 Family history of diabetes mellitus
CPT/HCPCS: 36600; 70450; 71046; 80048; 80053; 82140; 82248; 82803; 82948; 83605; 84484; 85025; 85027; 87641; 93005; 94640; 94660; 97530 GP; 99202; 99281; 99285; J1815; J1940; J3480; J7512

== ENCOUNTER 2017-04-01 16:58 | Inpatient (IN) | payer OTHER ==
[~2017-04-01] VITALS: Ht 165.1 cm; Wt 109.2 kg
[~2017-04-01 16:58] MED LIST changes: +HUMALOG100 UNIT/1 SC; +IRON325 M1 PO; +PROTONIX40 MG PO
[2017-04-01 18:34] LABS: ALBUMIN 3.3 g/dL (3.2-4.8)
[2017-04-01 18:35] LABS: CHLORIDE 97 mEq/L (99-109); POTASSIUM 4.3 mEq/L (3.7-5.4); SODIUM 134 mEq/L (136-147)
[2017-04-01 18:37] LABS: GLUCOSE 304 mg/dL (70-99); TOTAL PROTEIN 6.8 g/dL (6.4-8.3)
[2017-04-01 18:39] LABS: TOTAL BILIRUBIN 0.8 mg/dL (0.0-1.0); TROP-I INTERPRETATION NEGATIVE; TROPONIN-I 0.03 ng/mL (0.0-0.30)
[2017-04-01 18:40] LABS: ALKALINE PHOSPHATASE 177 IU/L (3-129)
[2017-04-01 18:41] LABS: CREATININE 1.5 mg/dL (0.6-1.3); GFR ESTIMATE (CALCULATED) 44 mL/min/
[2017-04-01 18:42] LABS: AST (GOT) 12 IU/L (2-34); UREA NITROGEN (BUN) 18 mg/dL (9-23)
[2017-04-01 18:44] LABS: ALT (GPT) 23 IU/L (3-49)
[2017-04-01 18:57] LABS: BASOPHIL (%) 0.2 % (0-1); EOSINOPHIL (%) 0.2 % (0-5); EOSINOPHIL COUNT 0.1 K/uL (0-0.3); HEMATOCRIT 34.9 % (36.0-46.0); HEMOGLOBIN 10.9 G/DL (11.9-15.5); IMMATURE GRANULOCYTE (%) 1.7 % (0.0-0.7); LYMPHOCYTE (%) 3.5 % (15-42); LYMPHOCYTE COUNT 0.8 K/uL (1.0-2.8); MCH 21.8 PG (29.0-34.0); MCHC 31.2 G/DL (30.0-36.0); MCV 69.8 FL (83-99); MONOCYTE (%) 7.1 % (3-12); MONOCYTE COUNT 1.7 K/uL (0-0.8); NEUTROPHIL (%) 87.3 % (45-76); NEUTROPHIL COUNT 20.6 K/uL (1.8-6.4); NRBC (%) 0.1 /100 WBC (0-0); RBC DIS.WIDTH-SD 41.8 % (39-53); WHITE BLOOD COUNT 23.6 K/uL (4.1-10.2)
[2017-04-01 18:59] LABS: PLATELET COUNT 332 K/uL (156-360)
[2017-04-01 19:20] LABS: C DIFF TOXIN NEGATIVE (NEGATIVE)
[2017-04-02 07:50] LABS: BASOPHIL (%) 0.2 % (0-1); EOSINOPHIL (%) 0.8 % (0-5); EOSINOPHIL COUNT 0.2 K/uL (0-0.3); HEMATOCRIT 34.9 % (36.0-46.0); HEMOGLOBIN 10.9 G/DL (11.9-15.5); IMMATURE GRANULOCYTE (%) 0.6 % (0.0-0.7); LYMPHOCYTE (%) 7.5 % (15-42); LYMPHOCYTE COUNT 1.4 K/uL (1.0-2.8); MCH 21.7 PG (29.0-34.0); MCHC 31.2 G/DL (30.0-36.0); MCV 69.5 FL (83-99); MONOCYTE (%) 7.9 % (3-12); MONOCYTE COUNT 1.5 K/uL (0-0.8); NEUTROPHIL COUNT 15.4 K/uL (1.8-6.4); PLATELET COUNT 339 K/uL (156-360); RBC DIS.WIDTH-CV 17.1 % (11.8-14.6); RBC DIS.WIDTH-SD 41.8 % (39-53); RED BLOOD COUNT 5.02 M/uL (3.80-5.20); WHITE BLOOD COUNT 18.5 K/uL (4.1-10.2)
[2017-04-02 08:16] LABS: ALBUMIN 3.2 G/DL (3.2-4.8); ALKALINE PHOSPHATASE 163 IU/L (3-129); ALT (GPT) 19 IU/L (3-49); AST (GOT) 8 IU/L (2-34); CHLORIDE 96 MEQ/L (99-109); CREATININE 1.3 MG/DL (0.6-1.3); GFR ESTIMATE (CALCULATED) 52 mL/min/; GLUCOSE 206 mg/dL (70-99); POTASSIUM 4.2 MEQ/L (3.7-5.4); SODIUM 136 MEQ/L (136-147); TOTAL BILIRUBIN 0.6 MG/DL (0.0-1.0); TOTAL PROTEIN 6.6 G/DL (6.4-8.3); UREA NITROGEN (BUN) 21 mg/dL (9-23)
[2017-04-02 19:49] VITALS: BP 125/58
[2017-04-03] VITALS (7 sets, daily range): BP systolic 142–197; BP diastolic 66–88
[2017-04-03 07:39] LABS: BASOPHIL (%) 0.2 % (0-1); EOSINOPHIL (%) 1.3 % (0-5); EOSINOPHIL COUNT 0.2 K/uL (0-0.3); HEMATOCRIT 32.1 % (36.0-46.0); IMMATURE GRANULOCYTE (%) 0.9 % (0.0-0.7); LYMPHOCYTE (%) 9.9 % (15-42); LYMPHOCYTE COUNT 1.3 K/uL (1.0-2.8); MCH 21.6 PG (29.0-34.0); MCHC 31.2 G/DL (30.0-36.0); MCV 69.2 FL (83-99); MONOCYTE (%) 8.6 % (3-12); MONOCYTE COUNT 1.1 K/uL (0-0.8); NEUTROPHIL (%) 79.1 % (45-76); NEUTROPHIL COUNT 10.3 K/uL (1.8-6.4); PLATELET COUNT 367 K/uL (156-360); RBC DIS.WIDTH-SD 41.1 % (39-53); RED BLOOD COUNT 4.64 M/uL (3.80-5.20)
[2017-04-03 07:55] LABS: ALBUMIN 3.1 G/DL (3.2-4.8); ALKALINE PHOSPHATASE 142 IU/L (3-129); ALT (GPT) 13 IU/L (3-49); AST (GOT) < 7 IU/L (2-34); CHLORIDE 99 MEQ/L (99-109); CREATININE 1.1 MG/DL (0.6-1.3); GFR ESTIMATE (CALCULATED) > 59 mL/min/; GLUCOSE 184 mg/dL (70-99); POTASSIUM 3.8 MEQ/L (3.7-5.4); SODIUM 137 MEQ/L (136-147); TOTAL BILIRUBIN 0.5 MG/DL (0.0-1.0); TOTAL PROTEIN 6.4 G/DL (6.4-8.3); UREA NITROGEN (BUN) 19 mg/dL (9-23)
[2017-04-03 07:56] LABS: CHLORIDE 99 MEQ/L (99-109); GFR ESTIMATE (CALCULATED) > 59 mL/min/; GLUCOSE 185 mg/dL (70-99); POTASSIUM 3.8 MEQ/L (3.7-5.4); SODIUM 137 MEQ/L (136-147); UREA NITROGEN (BUN) 20 mg/dL (9-23)
[2017-04-04 03:23] VITALS: BP 178/80
[2017-04-04 08:00] VITALS: BP 150/74
[2017-04-04 11:54] VITALS: BP 161/77
[2017-04-04 16:00] VITALS: BP 146/73
[2017-04-04 23:30] VITALS: BP 133/62
[2017-04-05 06:22] LABS: CHLORIDE 101 MEQ/L (99-109); CREATININE 0.9 MG/DL (0.6-1.3); GFR ESTIMATE (CALCULATED) > 59 mL/min/; GLUCOSE 130 mg/dL (70-99); POTASSIUM 4.2 MEQ/L (3.7-5.4); SODIUM 139 MEQ/L (136-147); UREA NITROGEN (BUN) 17 mg/dL (9-23)
[2017-04-05 06:57] LABS: BASOPHIL (%) 0.3 % (0-1); EOSINOPHIL (%) 1.9 % (0-5); EOSINOPHIL COUNT 0.2 K/uL (0-0.3); HEMATOCRIT 34.8 % (36.0-46.0); HEMOGLOBIN 10.9 G/DL (11.9-15.5); IMMATURE GRANULOCYTE (%) 1.5 % (0.0-0.7); LYMPHOCYTE (%) 12.7 % (15-42); LYMPHOCYTE COUNT 1.4 K/uL (1.0-2.8); MCH 21.8 PG (29.0-34.0); MCHC 31.3 G/DL (30.0-36.0); MCV 69.5 FL (83-99); MONOCYTE (%) 10.9 % (3-12); MONOCYTE COUNT 1.2 K/uL (0-0.8); NEUTROPHIL (%) 72.7 % (45-76); NEUTROPHIL COUNT 8.2 K/uL (1.8-6.4); PLATELET COUNT 382 K/uL (156-360); RBC DIS.WIDTH-CV 17.2 % (11.8-14.6); RBC DIS.WIDTH-SD 41.7 % (39-53); RED BLOOD COUNT 5.01 M/uL (3.80-5.20); WHITE BLOOD COUNT 11.2 K/uL (4.1-10.2)
[2017-04-05 07:40] VITALS: BP 163/73
[2017-04-05] MEDS ORDERED: FLAGYL500 MG PO (13:25)
== END 2017-04-05 15:00 | disposition home health service (06) | DRG 392 ==
LOC: EME 16:58 → 4SOUTH 20:05 → EDOF 20:05 → ENRESERV 20:24 → 4SOUTH 04-02 16:16 → ENRESERV 04-05 13:07 → CANRESERV 04-05 13:17 → ENRESERV 04-05 13:17 → 4SOUTH 04-05 15:00
PROVIDERS: Family Medicine; Physician Assistant
PROC: 5A09357 Assistance with Respiratory Ventilation, Less than 24 Consecutive Hours, Continuous Positive Airway Pressure (ICD-10-PCS; principal; 2017-04-01)
DX: K52.9 Noninfective gastroenteritis and colitis, unspecified (principal); I13.0 Hypertensive heart and chronic kidney disease with heart failure and stage 1 through stage 4 chronic kidney disease, or unspecified chronic kidney disease; N18.9 Chronic kidney disease, unspecified; I50.9 Heart failure, unspecified; E11.22 Type 2 diabetes mellitus with diabetic chronic kidney disease; I95.9 Hypotension, unspecified; E86.0 Dehydration; G47.33 Obstructive sleep apnea (adult) (pediatric); E66.01 Morbid (severe) obesity due to excess calories; Z68.41 Body mass index [BMI] 40.0-44.9, adult; I87.8 Other specified disorders of veins; D64.9 Anemia, unspecified; J44.9 Chronic obstructive pulmonary disease, unspecified; I25.2 Old myocardial infarction; K21.9 Gastro-esophageal reflux disease without esophagitis; F41.9 Anxiety disorder, unspecified; F32.9 Major depressive disorder, single episode, unspecified; Z79.4 Long term (current) use of insulin; Z79.82 Long term (current) use of aspirin
CPT/HCPCS: 80048; 80053; 81003; 82948; 83605; 84484; 85025; 87493; 87506; 93005; 94660; 94799; 99202; 99281; 99285; J1650; J1815; J7030; J7512; S0030

== ENCOUNTER 2017-04-09 12:24 | Observation (INO) | payer OTHER ==
[~2017-04-09] VITALS: Ht 149.9 cm; Wt 108.9 kg
[~2017-04-09 12:24] MED LIST changes: +FLAGYL500 MG PO
[2017-04-09 14:14] LABS: HEMATOCRIT 34.5 % (36.0-46.0); MCH 21.8 PG (29.0-34.0); MCHC 31.9 G/DL (30.0-36.0); MCV 68.3 FL (83-99); PLATELET COUNT 368 K/uL (156-360); RBC DIS.WIDTH-CV 17.1 % (11.8-14.6); RBC DIS.WIDTH-SD 40.9 % (39-53); RED BLOOD COUNT 5.05 M/uL (3.80-5.20); WHITE BLOOD COUNT 14.9 K/uL (4.1-10.2)
[2017-04-09 14:17] LABS: ALBUMIN 3.6 g/dL (3.2-4.8); CHLORIDE 100 mEq/L (99-109); POTASSIUM 4.1 mEq/L (3.7-5.4); SODIUM 136 mEq/L (136-147)
[2017-04-09 14:19] LABS: GLUCOSE 289 mg/dL (70-99); TOTAL PROTEIN 7.5 g/dL (6.4-8.3)
[2017-04-09 14:21] LABS: TOTAL BILIRUBIN 0.7 mg/dL (0.0-1.0)
[2017-04-09 14:23] LABS: ALKALINE PHOSPHATASE 136 IU/L (3-129); GFR ESTIMATE (CALCULATED) > 59 mL/min/
[2017-04-09 14:24] LABS: AST (GOT) 11 IU/L (2-34); UREA NITROGEN (BUN) 19 mg/dL (9-23)
[2017-04-09 14:26] LABS: ALT (GPT) 14 IU/L (3-49)
[2017-04-09] MEDS ORDERED: ZESTRIL2.5 MG PO (18:12)
[2017-04-09] MEDS ORDERED: BENGAY GREASELE57 GM TP (18:15)
[2017-04-09] MEDS ORDERED: PERCOCET 5/31 TABLET PO (18:16)
[2017-04-09] MEDS ORDERED: HUMULIN N100 UNITS/ SC ×2 (18:17→18:18)
[2017-04-09] MEDS ORDERED: KLOR-CON M2020 MEQ PO (18:18)
[2017-04-09] MEDS ORDERED: DIABETIC TUSSI118 ML PO (18:19)
[2017-04-09] MEDS ORDERED: ALDACTONE25 MG PO (18:19)
[2017-04-09] MEDS ORDERED: LASIX80 MG PO (18:20)
[2017-04-09] MEDS ORDERED: BACTROBAN CREAM15 GM TP (18:20)
[2017-04-09] MEDS ORDERED: DULCOLAX5 MG PO (18:20)
[2017-04-09] MEDS ORDERED: TUMS ULTRA1000 MG PO (18:21)
[2017-04-09 19:59] VITALS: BP 125/86
[2017-04-10 00:28] VITALS: BP 119/53
[2017-04-10 02:03] LABS: APPEARANCE CLOUDY ((CLEAR)); BILIRUBIN NEGATIVE; BLOOD NEGATIVE; COLOR YELLOW ((YELLOW)); GLUCOSE (STRIP) >=500; KETONES NEGATIVE; LEUKOCYTES SMALL; NITRITE NEGATIVE; PROTEIN (STRIP) NEGATIVE; SPECIFIC GRAVITY 1.025 (1.000-1.030); UROBILINOGEN 0.2 MG/DL (0.2-1.0)
[2017-04-10 02:22] LABS: BACTERIA 2+ /HPF; EPITHELIAL CELLS 1+ /HPF; MUCUS NONE SEEN /LPF; RED BLOOD CELLS 0-5 /HPF (0-5); UCUL ADDED? YES
[2017-04-10 05:57] LABS: HEMATOCRIT 34.2 % (36.0-46.0); HEMOGLOBIN 10.4 G/DL (11.9-15.5); MCH 21.3 PG (29.0-34.0); MCHC 30.4 G/DL (30.0-36.0); MCV 69.9 FL (83-99); PLATELET COUNT 361 K/uL (156-360); RBC DIS.WIDTH-CV 17.4 % (11.8-14.6); RBC DIS.WIDTH-SD 43.1 % (39-53); RED BLOOD COUNT 4.89 M/uL (3.80-5.20); WHITE BLOOD COUNT 10.2 K/uL (4.1-10.2)
[2017-04-10 09:15] VITALS: BP 122/86
[2017-04-10 11:19] VITALS: BP 106/55
[2017-04-10 15:59] VITALS: BP 112/54
[2017-04-10] MEDS ORDERED: METRONIDAZOLE500 MG PO (17:00)
[2017-04-10] MEDS ORDERED: LOVENOX40 MG/0.4 SC (17:00)
[2017-04-10] MEDS ORDERED: PREDNISONE5 MG PO (17:01)
[2017-04-10] MEDS ORDERED: NOVOLOG 10100 UNITS/ SC (17:02)
[2017-04-10] MEDS ORDERED: PERCOCET 5/31 TABLET PO (17:04)
[2017-04-10 19:52] VITALS: BP 123/58
== END 2017-04-10 21:00 ==
LOC: EME 12:24 → 5WEST 17:24 → EDOF 17:24 → ENRESERV 17:28 → 5WEST 19:33
PROVIDERS: Family Medicine
DX: M25.562 Pain in left knee (principal); M79.605 Pain in left leg; R10.9 Unspecified abdominal pain; R26.2 Difficulty in walking, not elsewhere classified; M17.12 Unilateral primary osteoarthritis, left knee; M16.12 Unilateral primary osteoarthritis, left hip; I13.0 Hypertensive heart and chronic kidney disease with heart failure and stage 1 through stage 4 chronic kidney disease, or unspecified chronic kidney disease; I50.9 Heart failure, unspecified; N18.9 Chronic kidney disease, unspecified; E11.22 Type 2 diabetes mellitus with diabetic chronic kidney disease; E11.65 Type 2 diabetes mellitus with hyperglycemia; G47.33 Obstructive sleep apnea (adult) (pediatric); J44.9 Chronic obstructive pulmonary disease, unspecified; D64.9 Anemia, unspecified; K21.9 Gastro-esophageal reflux disease without esophagitis; I25.10 Atherosclerotic heart disease of native coronary artery without angina pectoris; F41.9 Anxiety disorder, unspecified; F32.9 Major depressive disorder, single episode, unspecified; E66.01 Morbid (severe) obesity due to excess calories; Z68.38 Body mass index [BMI] 38.0-38.9, adult; I87.8 Other specified disorders of veins; Z83.3 Family history of diabetes mellitus; Z82.49 Family history of ischemic heart disease and other diseases of the circulatory system; Z88.5 Allergy status to narcotic agent; Z91.041 Radiographic dye allergy status; Z79.4 Long term (current) use of insulin
CPT/HCPCS: 73552; 73564; 80053; 81003; 82948; 83605; 85027; 87077; 87086; 87186; 93971; 94640; 94760; 94799; 99202; 99281; 99285; G0378; G8978 GP CM; G8979 GP CL; G8980 GP CM; J1650; J1815; J2405; J3010; J7512

== ENCOUNTER 2017-05-11 12:47 | Inpatient (IN) | payer OTHER ==
[~2017-05-11] VITALS: Ht 147.3 cm; Wt 106.8 kg
[~2017-05-11 12:47] MED LIST changes: +BACTROBAN CREAM15 GM TP; +BENGAY GREASELE57 GM TP; +DIABETIC TUSSI118 ML PO; +DULCOLAX5 MG PO; +KLOR-CON M2020 MEQ PO; -LATANOPROST2.5 ML BOTH EYES; +LATANOPROST2.5 ML RIGHT EYE; +LOVENOX40 MG/0.4 SC; +METRONIDAZOLE500 MG PO; +NOVOLOG 10100 UNITS/ SC; +PERCOCET 5/31 TABLET PO; +TUMS ULTRA1000 MG PO; +ZESTRIL2.5 MG PO
[2017-05-11 14:50] LABS: ALBUMIN 3.8 g/dL (3.2-4.8)
[2017-05-11 14:51] LABS: CHLORIDE 97 mEq/L (99-109); POTASSIUM 4.3 mEq/L (3.7-5.4); SODIUM 136 mEq/L (136-147)
[2017-05-11 14:53] LABS: GLUCOSE 398 mg/dL (70-99); TOTAL PROTEIN 8.1 g/dL (6.4-8.3)
[2017-05-11 14:55] LABS: TOTAL BILIRUBIN 0.6 mg/dL (0.0-1.0)
[2017-05-11 14:56] LABS: ALKALINE PHOSPHATASE 130 IU/L (3-129); HEMATOCRIT 36.8 % (36.0-46.0); HEMOGLOBIN 11.7 G/DL (11.9-15.5); MCH 21.4 PG (29.0-34.0); MCHC 31.8 G/DL (30.0-36.0); MCV 67.4 FL (83-99); PLATELET COUNT 323 K/uL (156-360); RBC DIS.WIDTH-SD 40.5 % (39-53); RED BLOOD COUNT 5.46 M/uL (3.80-5.20); WHITE BLOOD COUNT 16.7 K/uL (4.1-10.2)
[2017-05-11 14:57] LABS: CREATININE 1.1 mg/dL (0.6-1.3); GFR ESTIMATE (CALCULATED) > 59 mL/min/
[2017-05-11 14:58] LABS: AST (GOT) 16 IU/L (2-34); UREA NITROGEN (BUN) 17 mg/dL (9-23)
[2017-05-11 14:59] LABS: ALT (GPT) 13 IU/L (3-49)
[2017-05-11] MEDS ORDERED: KLOR-CON M1010 MEQ PO (19:02)
[2017-05-11] MEDS ORDERED: LASIX40 MG PO (19:03)
[2017-05-11] MEDS ORDERED: FUROSEMIDE80 MG PO (19:04)
[2017-05-11] MEDS ORDERED: ALDACTONE25 MG PO (19:07)
[2017-05-11] MEDS ORDERED: HUMULIN N100 UNITS/ SC ×2 (19:12→19:13)
[2017-05-11] MEDS ORDERED: HUMALOG100 UNIT/1 SC (19:17)
[2017-05-11] MEDS ORDERED: PREDNISONE5 MG PO (19:20)
[2017-05-11] MEDS ORDERED: LOVENOX40 MG/0.4 SC (19:21)
[2017-05-11 21:50] VITALS: BP 126/60
[2017-05-11 23:49] VITALS: BP 129/66
[2017-05-12 06:35] VITALS: BP 157/69
[2017-05-12 06:55] LABS: BASOPHIL (%) 0.2 % (0-1); EOSINOPHIL COUNT 0.2 K/uL (0-0.3); IMMATURE GRANULOCYTE (%) 0.5 % (0.0-0.7); LYMPHOCYTE COUNT 1.8 K/uL (1.0-2.8); MCV 67.8 FL (83-99); MONOCYTE (%) 9.3 % (3-12); PLATELET COUNT 289 K/uL (156-360); RBC DIS.WIDTH-CV 17.4 % (11.8-14.6); RBC DIS.WIDTH-SD 41.1 % (39-53); RED BLOOD COUNT 4.57 M/uL (3.80-5.20); WHITE BLOOD COUNT 11.1 K/uL (4.1-10.2)
[2017-05-12 06:58] LABS: HEMOGLOBIN 9.6 G/DL (11.9-15.5)
[2017-05-12 07:09] LABS: CHLORIDE 104 MEQ/L (99-109); POTASSIUM 3.8 MEQ/L (3.7-5.4); SODIUM 139 MEQ/L (136-147); UREA NITROGEN (BUN) 11 mg/dL (9-23)
[2017-05-12 07:12] LABS: CREATININE 0.6 MG/DL (0.6-1.3); GFR ESTIMATE (CALCULATED) > 59 mL/min/; GLUCOSE 162 mg/dL (70-99)
[2017-05-12 15:15] VITALS: BP 111/56
[2017-05-13 00:10] VITALS: BP 114/56
[2017-05-13 06:23] LABS: BASOPHIL (%) 0.3 % (0-1); EOSINOPHIL (%) 1.9 % (0-5); EOSINOPHIL COUNT 0.2 K/uL (0-0.3); HEMATOCRIT 31.1 % (36.0-46.0); HEMOGLOBIN 9.4 G/DL (11.9-15.5); IMMATURE GRANULOCYTE (%) 0.6 % (0.0-0.7); LYMPHOCYTE (%) 15.6 % (15-42); LYMPHOCYTE COUNT 1.7 K/uL (1.0-2.8); MCH 20.6 PG (29.0-34.0); MCHC 30.2 G/DL (30.0-36.0); MCV 68.2 FL (83-99); MONOCYTE (%) 9.7 % (3-12); MONOCYTE COUNT 1.1 K/uL (0-0.8); NEUTROPHIL (%) 71.9 % (45-76); NEUTROPHIL COUNT 7.8 K/uL (1.8-6.4); PLATELET COUNT 274 K/uL (156-360); RBC DIS.WIDTH-CV 17.4 % (11.8-14.6); RBC DIS.WIDTH-SD 42.2 % (39-53); RED BLOOD COUNT 4.56 M/uL (3.80-5.20); WHITE BLOOD COUNT 10.8 K/uL (4.1-10.2)
[2017-05-13 06:33] LABS: CHLORIDE 101 MEQ/L (99-109); CREATININE 0.7 MG/DL (0.6-1.3); GFR ESTIMATE (CALCULATED) > 59 mL/min/; GLUCOSE 130 mg/dL (70-99); POTASSIUM 3.9 MEQ/L (3.7-5.4); SODIUM 137 MEQ/L (136-147); UREA NITROGEN (BUN) 11 mg/dL (9-23)
[2017-05-13 07:08] VITALS: BP 132/58
[2017-05-13 15:27] VITALS: BP 125/59
[2017-05-13 23:57] VITALS: BP 128/60
[2017-05-14 08:00] VITALS: BP 109/83
[2017-05-14 09:42] LABS: BASOPHIL (%) 0.1 % (0-1); EOSINOPHIL (%) 1.6 % (0-5); EOSINOPHIL COUNT 0.2 K/uL (0-0.3); HEMOGLOBIN 9.7 G/DL (11.9-15.5); IMMATURE GRANULOCYTE (%) 0.7 % (0.0-0.7); LYMPHOCYTE (%) 13.3 % (15-42); LYMPHOCYTE COUNT 1.4 K/uL (1.0-2.8); MCH 21.3 PG (29.0-34.0); MCHC 31.3 G/DL (30.0-36.0); MONOCYTE (%) 7.1 % (3-12); MONOCYTE COUNT 0.7 K/uL (0-0.8); NEUTROPHIL (%) 77.2 % (45-76); NEUTROPHIL COUNT 7.9 K/uL (1.8-6.4); PLATELET COUNT 277 K/uL (156-360); RBC DIS.WIDTH-CV 17.9 % (11.8-14.6); RBC DIS.WIDTH-SD 43.3 % (39-53); RED BLOOD COUNT 4.56 M/uL (3.80-5.20); WHITE BLOOD COUNT 10.2 K/uL (4.1-10.2)
[2017-05-14 16:00] VITALS: BP 91/51
[2017-05-15 00:26] VITALS: BP 117/55
[2017-05-15 06:41] LABS: BASOPHIL (%) 0.3 % (0-1); EOSINOPHIL (%) 1.7 % (0-5); EOSINOPHIL COUNT 0.2 K/uL (0-0.3); HEMATOCRIT 31.2 % (36.0-46.0); HEMOGLOBIN 9.7 G/DL (11.9-15.5); IMMATURE GRANULOCYTE (%) 0.7 % (0.0-0.7); LYMPHOCYTE (%) 14.9 % (15-42); LYMPHOCYTE COUNT 1.4 K/uL (1.0-2.8); MCHC 31.1 G/DL (30.0-36.0); MCV 67.7 FL (83-99); MONOCYTE (%) 9.2 % (3-12); MONOCYTE COUNT 0.9 K/uL (0-0.8); NEUTROPHIL (%) 73.2 % (45-76); PLATELET COUNT 291 K/uL (156-360); RBC DIS.WIDTH-CV 17.7 % (11.8-14.6); RBC DIS.WIDTH-SD 41.9 % (39-53); RED BLOOD COUNT 4.61 M/uL (3.80-5.20); WHITE BLOOD COUNT 9.5 K/uL (4.1-10.2)
[2017-05-15 06:49] VITALS: BP 142/63
[2017-05-15 07:01] LABS: CHLORIDE 98 MEQ/L (99-109); CREATININE 0.6 MG/DL (0.6-1.3); GFR ESTIMATE (CALCULATED) > 59 mL/min/; GLUCOSE 172 mg/dL (70-99); POTASSIUM 3.8 MEQ/L (3.7-5.4); SODIUM 137 MEQ/L (136-147); UREA NITROGEN (BUN) 9 mg/dL (9-23)
[2017-05-15 15:54] VITALS: BP 112/53
[2017-05-15 17:32] LABS: CHLORIDE 98 MEQ/L (99-109); POTASSIUM 3.8 MEQ/L (3.7-5.4); SODIUM 134 MEQ/L (136-147)
[2017-05-15 17:38] LABS: CREATININE 0.7 MG/DL (0.6-1.3); GFR ESTIMATE (CALCULATED) > 59 mL/min/; UREA NITROGEN (BUN) 9 mg/dL (9-23)
[2017-05-15 17:39] LABS: GLUCOSE 271 mg/dL (70-99)
[2017-05-15 17:49] LABS: BASOPHIL (%) 0.1 % (0-1); EOSINOPHIL (%) 1.2 % (0-5); EOSINOPHIL COUNT 0.1 K/uL (0-0.3); HEMATOCRIT 32.3 % (36.0-46.0); HEMOGLOBIN 10.1 G/DL (11.9-15.5); IMMATURE GRANULOCYTE (%) 0.5 % (0.0-0.7); LYMPHOCYTE (%) 12.6 % (15-42); LYMPHOCYTE COUNT 1.4 K/uL (1.0-2.8); MCHC 31.3 G/DL (30.0-36.0); MONOCYTE (%) 6.4 % (3-12); MONOCYTE COUNT 0.7 K/uL (0-0.8); NEUTROPHIL (%) 79.2 % (45-76); NEUTROPHIL COUNT 8.7 K/uL (1.8-6.4); PLATELET COUNT 326 K/uL (156-360); RBC DIS.WIDTH-CV 17.3 % (11.8-14.6); RBC DIS.WIDTH-SD 41.2 % (39-53); RED BLOOD COUNT 4.82 M/uL (3.80-5.20)
[2017-05-16 00:05] VITALS: BP 122/60
[2017-05-16 07:32] VITALS: BP 121/61
[2017-05-16] MEDS ORDERED: KEFLEX500 MG PO (12:46)
[2017-05-16] MEDS ORDERED: ENDOCET 5-3251 EACH PO (12:47)
== END 2017-05-16 15:06 | disposition home or self-care (01) | DRG 603 ==
LOC: EME 12:47 → EDOF 18:09 → 5EAST 18:09 → ENRESERV 18:20 → 5EAST 21:03
PROVIDERS: Family Medicine
DX: L03.115 Cellulitis of right lower limb (principal); L03.116 Cellulitis of left lower limb; E11.65 Type 2 diabetes mellitus with hyperglycemia; K21.9 Gastro-esophageal reflux disease without esophagitis; R26.2 Difficulty in walking, not elsewhere classified; I10 Essential (primary) hypertension; J43.9 Emphysema, unspecified; E66.01 Morbid (severe) obesity due to excess calories; F32.9 Major depressive disorder, single episode, unspecified; F41.9 Anxiety disorder, unspecified; E11.22 Type 2 diabetes mellitus with diabetic chronic kidney disease; M25.562 Pain in left knee; N18.9 Chronic kidney disease, unspecified; M25.561 Pain in right knee; D63.1 Anemia in chronic kidney disease; J44.9 Chronic obstructive pulmonary disease, unspecified; G47.33 Obstructive sleep apnea (adult) (pediatric); L89.620 Pressure ulcer of left heel, unstageable; L89.610 Pressure ulcer of right heel, unstageable; M19.90 Unspecified osteoarthritis, unspecified site; I13.0 Hypertensive heart and chronic kidney disease with heart failure and stage 1 through stage 4 chronic kidney disease, or unspecified chronic kidney disease; Z68.42 Body mass index [BMI] 45.0-49.9, adult; Z79.4 Long term (current) use of insulin; Z83.3 Family history of diabetes mellitus; Z82.49 Family history of ischemic heart disease and other diseases of the circulatory system; R51 Headache; I25.2 Old myocardial infarction
CPT/HCPCS: 80048; 80048 91; 80053; 81003; 82948; 83605; 85025; 85025 91; 85027; 94640; 94640 76; 94660; 94799; 99202; C1755; J0690; J1650; J1815; J7030; J7040; J7050

== ENCOUNTER 2017-09-20 15:08 | Inpatient (IN) | payer OTHER ==
[~2017-09-20] VITALS: Ht 144.8 cm; Wt 97.9 kg
[~2017-09-20 15:08] MED LIST changes: +ENDOCET 5-3251 EACH PO; +KLOR-CON M1010 MEQ PO; +OMEPRAZOLE20 MG PO; -PROTONIX40 MG PO
[2017-09-20 16:20] LABS: ALBUMIN 3.4 g/dL (3.2-4.8)
[2017-09-20 16:21] LABS: CHLORIDE 97 mEq/L (99-109); POTASSIUM 3.5 mEq/L (3.7-5.4); SODIUM 136 mEq/L (136-147)
[2017-09-20 16:23] LABS: GLUCOSE 287 mg/dL (70-99); TOTAL PROTEIN 7.1 g/dL (6.4-8.3)
[2017-09-20 16:25] LABS: TOTAL BILIRUBIN 0.9 mg/dL (0.0-1.0)
[2017-09-20 16:26] LABS: ALKALINE PHOSPHATASE 131 IU/L (3-129)
[2017-09-20 16:27] LABS: CREATININE 0.8 mg/dL (0.6-1.3); GFR ESTIMATE (CALCULATED) > 59 mL/min/
[2017-09-20 16:28] LABS: AST (GOT) 9 IU/L (2-34); UREA NITROGEN (BUN) 11 mg/dL (9-23)
[2017-09-20 16:30] LABS: ALT (GPT) 7 IU/L (3-49); BASOPHIL (%) 0.2 % (0-1); EOSINOPHIL (%) 1.2 % (0-5); EOSINOPHIL COUNT 0.1 K/uL (0-0.3); HEMATOCRIT 33.8 % (36.0-46.0); HEMOGLOBIN 10.9 G/DL (11.9-15.5); IMMATURE GRANULOCYTE (%) 0.4 % (0.0-0.7); LYMPHOCYTE (%) 10.4 % (15-42); LYMPHOCYTE COUNT 1.2 K/uL (1.0-2.8); MCH 21.5 PG (29.0-34.0); MCHC 32.2 G/DL (30.0-36.0); MCV 66.8 FL (83-99); MONOCYTE (%) 8.4 % (3-12); NEUTROPHIL (%) 79.4 % (45-76); NEUTROPHIL COUNT 9.4 K/uL (1.8-6.4); PLATELET COUNT 251 K/uL (156-360); RBC DIS.WIDTH-CV 17.5 % (11.8-14.6); RBC DIS.WIDTH-SD 41.3 % (39-53); RED BLOOD COUNT 5.06 M/uL (3.80-5.20); WHITE BLOOD COUNT 11.9 K/uL (4.1-10.2)
[2017-09-20 16:31] LABS: TROP-I INTERPRETATION NEGATIVE; TROPONIN-I < 0.01 ng/mL (0.0-0.30)
[2017-09-20] MEDS ORDERED: PANTOPRAZOLE SO40 MG PO (17:36)
[2017-09-20 21:13] VITALS: BP 147/67
[2017-09-20 23:56] VITALS: BP 150/72
[2017-09-21] VITALS (8 sets, daily range): BP systolic 99–144; BP diastolic 49–68
[2017-09-21 00:57] LABS: APPEARANCE CLEAR ((CLEAR)); BILIRUBIN NEGATIVE; BLOOD NEGATIVE; COLOR STRAW ((YELLOW)); GLUCOSE (STRIP) 150; KETONES NEGATIVE; LEUKOCYTES TRACE; NITRITE NEGATIVE; PROTEIN (STRIP) NEGATIVE; SPECIFIC GRAVITY 1.004 (1.000-1.030); UROBILINOGEN 0.2 MG/DL (0.2-1.0)
[2017-09-21 01:18] LABS: TROP-I INTERPRETATION NEGATIVE; TROPONIN-I < 0.01 ng/mL (0.0-0.30)
[2017-09-21 01:23] LABS: BACTERIA 1+ /HPF; EPITHELIAL CELLS RARE /HPF; MUCUS TRACE /LPF; RED BLOOD CELLS NONE SEEN /HPF (0-5); UCUL ADDED? NO; WHITE BLOOD CELLS 0-5 /HPF (0-5)
[2017-09-21 07:38] LABS: BASOPHIL (%) 0.2 % (0-1); EOSINOPHIL (%) 2.1 % (0-5); EOSINOPHIL COUNT 0.2 K/uL (0-0.3); HEMATOCRIT 32.2 % (36.0-46.0); HEMOGLOBIN 10.4 G/DL (11.9-15.5); IMMATURE GRANULOCYTE (%) 0.4 % (0.0-0.7); LYMPHOCYTE (%) 14.5 % (15-42); LYMPHOCYTE COUNT 1.2 K/uL (1.0-2.8); MCH 21.3 PG (29.0-34.0); MCHC 32.3 G/DL (30.0-36.0); MONOCYTE (%) 10.4 % (3-12); MONOCYTE COUNT 0.9 K/uL (0-0.8); NEUTROPHIL (%) 72.4 % (45-76); NEUTROPHIL COUNT 6.1 K/uL (1.8-6.4); PLATELET COUNT 243 K/uL (156-360); RBC DIS.WIDTH-CV 17.4 % (11.8-14.6); RBC DIS.WIDTH-SD 40.8 % (39-53); RED BLOOD COUNT 4.88 M/uL (3.80-5.20); WHITE BLOOD COUNT 8.5 K/uL (4.1-10.2)
[2017-09-21 07:41] LABS: TROP-I INTERPRETATION NEGATIVE; TROPONIN-I < 0.01 ng/mL (0.0-0.30)
[2017-09-21 10:49] LABS: CHLORIDE 95 MEQ/L (99-109); CREATININE 0.7 MG/DL (0.6-1.3); GFR ESTIMATE (CALCULATED) > 59 mL/min/; GLUCOSE 401 mg/dL (70-99); POTASSIUM 3.3 MEQ/L (3.7-5.4); SODIUM 139 MEQ/L (136-147); UREA NITROGEN (BUN) 9 mg/dL (9-23)
[2017-09-21 12:55] LABS: TROP-I INTERPRETATION NEGATIVE; TROPONIN-I < 0.01 ng/mL (0.0-0.30)
[2017-09-21 17:02] LABS: SODIUM 141 mEq/L (136-147)
[2017-09-21 17:04] LABS: GLUCOSE 207 mg/dL (70-99)
[2017-09-21 17:07] LABS: CREATININE 0.6 mg/dL (0.6-1.3); GFR ESTIMATE (CALCULATED) > 59 mL/min/
[2017-09-21 17:08] LABS: UREA NITROGEN (BUN) 5 mg/dL (9-23)
[2017-09-21 17:14] LABS: TROP-I INTERPRETATION NEGATIVE; TROPONIN-I < 0.01 ng/mL (0.0-0.30)
[2017-09-21 17:43] LABS: CHLORIDE 117 mEq/L (99-109); POTASSIUM 1.9 mEq/L (3.7-5.4)
[2017-09-22 03:28] VITALS: BP 131/54
[2017-09-22 07:14] LABS: BASOPHIL (%) 0.3 % (0-1); EOSINOPHIL (%) 3.1 % (0-5); EOSINOPHIL COUNT 0.2 K/uL (0-0.3); HEMATOCRIT 32.4 % (36.0-46.0); HEMOGLOBIN 10.3 G/DL (11.9-15.5); IMMATURE GRANULOCYTE (%) 0.3 % (0.0-0.7); LYMPHOCYTE (%) 24.1 % (15-42); LYMPHOCYTE COUNT 1.9 K/uL (1.0-2.8); MCH 21.1 PG (29.0-34.0); MCHC 31.8 G/DL (30.0-36.0); MCV 66.4 FL (83-99); MONOCYTE (%) 9.9 % (3-12); MONOCYTE COUNT 0.8 K/uL (0-0.8); NEUTROPHIL (%) 62.3 % (45-76); NEUTROPHIL COUNT 4.8 K/uL (1.8-6.4); PLATELET COUNT 249 K/uL (156-360); RBC DIS.WIDTH-CV 17.6 % (11.8-14.6); RBC DIS.WIDTH-SD 41.3 % (39-53); RED BLOOD COUNT 4.88 M/uL (3.80-5.20); WHITE BLOOD COUNT 7.7 K/uL (4.1-10.2)
[2017-09-22 08:04] LABS: CHLORIDE 96 MEQ/L (99-109); CREATININE 0.8 MG/DL (0.6-1.3); GFR ESTIMATE (CALCULATED) > 59 mL/min/; GLUCOSE 212 mg/dL (70-99); POTASSIUM 4.6 MEQ/L (3.7-5.4); SODIUM 138 MEQ/L (136-147); UREA NITROGEN (BUN) 9 mg/dL (9-23)
[2017-09-22 08:25] VITALS: BP 164/72
[2017-09-22 12:09] VITALS: BP 160/68
[2017-09-22 16:31] VITALS: BP 166/72
[2017-09-22 20:06] VITALS: BP 115/14
[2017-09-22 23:53] VITALS: BP 146/88
[2017-09-23 03:40] VITALS: BP 161/71
[2017-09-23 06:39] LABS: CHLORIDE 92 MEQ/L (99-109); CREATININE 0.7 MG/DL (0.6-1.3); GFR ESTIMATE (CALCULATED) > 59 mL/min/; POTASSIUM 4.7 MEQ/L (3.7-5.4); UREA NITROGEN (BUN) 9 mg/dL (9-23)
[2017-09-23 06:40] LABS: GLUCOSE 366 mg/dL (70-99); SODIUM 131 MEQ/L (136-147)
[2017-09-23 07:30] VITALS: BP 149/67
[2017-09-23 12:00] VITALS: BP 155/70
[2017-09-23 16:52] VITALS: BP 180/74
[2017-09-23 18:32] VITALS: BP 158/70
[2017-09-23 23:57] VITALS: BP 160/70
[2017-09-24 03:55] VITALS: BP 158/72
[2017-09-24 06:26] LABS: BASOPHIL (%) 0.3 % (0-1); EOSINOPHIL (%) 2.7 % (0-5); EOSINOPHIL COUNT 0.3 K/uL (0-0.3); HEMOGLOBIN 10.4 G/DL (11.9-15.5); IMMATURE GRANULOCYTE (%) 0.6 % (0.0-0.7); LYMPHOCYTE (%) 16.5 % (15-42); LYMPHOCYTE COUNT 1.6 K/uL (1.0-2.8); MCHC 31.5 G/DL (30.0-36.0); MCV 66.7 FL (83-99); MONOCYTE (%) 8.9 % (3-12); MONOCYTE COUNT 0.9 K/uL (0-0.8); NEUTROPHIL COUNT 6.9 K/uL (1.8-6.4); PLATELET COUNT 264 K/uL (156-360); RBC DIS.WIDTH-CV 16.9 % (11.8-14.6); RBC DIS.WIDTH-SD 39.7 % (39-53); RED BLOOD COUNT 4.95 M/uL (3.80-5.20); WHITE BLOOD COUNT 9.8 K/uL (4.1-10.2)
[2017-09-24 06:34] LABS: CHLORIDE 91 MEQ/L (99-109); CREATININE 0.8 MG/DL (0.6-1.3); GFR ESTIMATE (CALCULATED) > 59 mL/min/; GLUCOSE 377 mg/dL (70-99); POTASSIUM 4.4 MEQ/L (3.7-5.4); SODIUM 130 MEQ/L (136-147); UREA NITROGEN (BUN) 9 mg/dL (9-23)
[2017-09-24 08:23] VITALS: BP 149/67
[2017-09-24 16:33] VITALS: BP 135/63
[2017-09-24 18:50] VITALS: BP 164/61
[2017-09-24 23:20] VITALS: BP 134/60
[2017-09-25 03:20] VITALS: BP 160/65
[2017-09-25 06:07] LABS: BASOPHIL (%) 0.3 % (0-1); EOSINOPHIL (%) 2.9 % (0-5); EOSINOPHIL COUNT 0.3 K/uL (0-0.3); HEMATOCRIT 35.4 % (36.0-46.0); HEMOGLOBIN 11.2 G/DL (11.9-15.5); IMMATURE GRANULOCYTE (%) 0.5 % (0.0-0.7); LYMPHOCYTE (%) 16.6 % (15-42); LYMPHOCYTE COUNT 1.7 K/uL (1.0-2.8); MCH 20.9 PG (29.0-34.0); MCHC 31.6 G/DL (30.0-36.0); MCV 66.2 FL (83-99); MONOCYTE (%) 9.3 % (3-12); NEUTROPHIL (%) 70.4 % (45-76); NEUTROPHIL COUNT 7.3 K/uL (1.8-6.4); PLATELET COUNT 300 K/uL (156-360); RBC DIS.WIDTH-CV 16.8 % (11.8-14.6); RBC DIS.WIDTH-SD 39.3 % (39-53); RED BLOOD COUNT 5.35 M/uL (3.80-5.20); WHITE BLOOD COUNT 10.4 K/uL (4.1-10.2)
[2017-09-25 06:43] LABS: CHLORIDE 87 MEQ/L (99-109); GFR ESTIMATE (CALCULATED) > 59 mL/min/; POTASSIUM 4.5 MEQ/L (3.7-5.4); SODIUM 131 MEQ/L (136-147); UREA NITROGEN (BUN) 14 mg/dL (9-23)
[2017-09-25 06:55] LABS: GLUCOSE 402 mg/dL (70-99)
[2017-09-25 07:59] VITALS: BP 133/87
[2017-09-25 11:39] VITALS: BP 134/67
[2017-09-25] MEDS ORDERED: HUMULIN N100 UNITS/ SC (12:39)
[2017-09-25] MEDS ORDERED: TRAMADOL HCL50 MG PO (12:40)
[2017-09-25 13:18] LABS: GLUCOSE 466 mg/dL (70-99)
[2017-09-25 16:54] VITALS: BP 136/64
== END 2017-09-25 20:08 | DRG 291 ==
LOC: EME 15:08 → EDOF 17:17 → 2EAST 17:17 → ENRESERV 17:58 → 2EAST 20:51
PROVIDERS: Emergency Medicine; Family Medicine; Hospitalist
DX: I13.0 Hypertensive heart and chronic kidney disease with heart failure and stage 1 through stage 4 chronic kidney disease, or unspecified chronic kidney disease (principal); I50.33 Acute on chronic diastolic (congestive) heart failure; E87.1 Hypo-osmolality and hyponatremia; E66.01 Morbid (severe) obesity due to excess calories; Z68.43 Body mass index [BMI] 50.0-59.9, adult; N18.9 Chronic kidney disease, unspecified; E11.22 Type 2 diabetes mellitus with diabetic chronic kidney disease; L89.620 Pressure ulcer of left heel, unstageable; E87.6 Hypokalemia; R13.10 Dysphagia, unspecified; I87.8 Other specified disorders of veins; R09.02 Hypoxemia; I95.9 Hypotension, unspecified; R00.1 Bradycardia, unspecified; E11.65 Type 2 diabetes mellitus with hyperglycemia; J44.9 Chronic obstructive pulmonary disease, unspecified; I27.20 Pulmonary hypertension, unspecified; D63.1 Anemia in chronic kidney disease; G47.33 Obstructive sleep apnea (adult) (pediatric); I89.0 Lymphedema, not elsewhere classified; I25.10 Atherosclerotic heart disease of native coronary artery without angina pectoris; I25.2 Old myocardial infarction; K21.9 Gastro-esophageal reflux disease without esophagitis; K59.00 Constipation, unspecified; F32.9 Major depressive disorder, single episode, unspecified; F41.9 Anxiety disorder, unspecified; R26.2 Difficulty in walking, not elsewhere classified; M19.90 Unspecified osteoarthritis, unspecified site; H40.9 Unspecified glaucoma; Z96.651 Presence of right artificial knee joint; Z98.41 Cataract extraction status, right eye; Z79.4 Long term (current) use of insulin; Z98.42 Cataract extraction status, left eye
CPT/HCPCS: 71046; 72125; 73030; 73630; 80048; 80048 91; 80053; 81003; 82533 91; 82948; 83605; 83880; 84484; 84999; 85025; 87040; 93005; 94799; 99281; 99285; J1650; J1815; J1940; J3480; J7040; J7512

== ENCOUNTER 2017-10-07 20:23 | Emergency (ER) | payer OTHER ==
[~2017-10-07] VITALS: Ht 175.3 cm; Wt 96.0 kg
[~2017-10-07 20:23] MED LIST changes: +TRAMADOL HCL50 MG PO
[2017-10-07 23:30] LABS: BASOPHIL (%) 0.3 % (0-1); EOSINOPHIL COUNT 0.3 K/uL (0-0.3); HEMATOCRIT 36.4 % (36.0-46.0); HEMOGLOBIN 11.9 G/DL (11.9-15.5); IMMATURE GRANULOCYTE (%) 0.4 % (0.0-0.7); LYMPHOCYTE (%) 16.8 % (15-42); LYMPHOCYTE COUNT 2.4 K/uL (1.0-2.8); MCH 21.5 PG (29.0-34.0); MCHC 32.7 G/DL (30.0-36.0); MCV 65.7 FL (83-99); MONOCYTE (%) 7.3 % (3-12); NEUTROPHIL (%) 73.2 % (45-76); NEUTROPHIL COUNT 10.5 K/uL (1.8-6.4); PLATELET COUNT 333 K/uL (156-360); RBC DIS.WIDTH-CV 17.2 % (11.8-14.6); RBC DIS.WIDTH-SD 39.5 % (39-53); RED BLOOD COUNT 5.54 M/uL (3.80-5.20); WHITE BLOOD COUNT 14.3 K/uL (4.1-10.2)
[2017-10-07 23:36] LABS: ALBUMIN 3.8 g/dL (3.2-4.8); CHLORIDE 99 mEq/L (99-109); POTASSIUM 4.1 mEq/L (3.7-5.4); SODIUM 135 mEq/L (136-147)
[2017-10-07 23:39] LABS: GLUCOSE 268 mg/dL (70-99); TOTAL PROTEIN 7.8 g/dL (6.4-8.3)
[2017-10-07 23:40] LABS: TOTAL BILIRUBIN 0.8 mg/dL (0.0-1.0)
[2017-10-07 23:42] LABS: ALKALINE PHOSPHATASE 149 IU/L (3-129); CREATININE 1.1 mg/dL (0.6-1.3); GFR ESTIMATE (CALCULATED) > 59 mL/min/
[2017-10-07 23:43] LABS: UREA NITROGEN (BUN) 18 mg/dL (9-23)
[2017-10-07 23:44] LABS: AST (GOT) 12 IU/L (2-34)
[2017-10-07 23:45] LABS: ALT (GPT) 15 IU/L (3-49)
[2017-10-08 00:06] LABS: APPEARANCE SL.HAZY ((CLEAR)); BILIRUBIN NEGATIVE; BLOOD NEGATIVE; COLOR YELLOW ((YELLOW)); GLUCOSE (STRIP) 150; KETONES NEGATIVE; LEUKOCYTES NEGATIVE; NITRITE NEGATIVE; PROTEIN (STRIP) NEGATIVE; SPECIFIC GRAVITY 1.027 (1.000-1.030)
[2017-10-08 00:28] LABS: BACTERIA NONE SEEN /HPF; EPITHELIAL CELLS RARE /HPF; MUCUS TRACE /LPF; RED BLOOD CELLS 0-5 /HPF (0-5); UCUL ADDED? NO; WHITE BLOOD CELLS 0-5 /HPF (0-5)
[2017-10-08 02:31] VITALS: BP 117/64
== END 2017-10-08 02:31 | disposition home or self-care (01) ==
LOC: EME → EDBD 20:23 → EME 10-08 02:31
PROVIDERS: Emergency Medicine
DX: R30.0 Dysuria (principal); E11.9 Type 2 diabetes mellitus without complications; Z79.4 Long term (current) use of insulin; F32.9 Major depressive disorder, single episode, unspecified; G89.29 Other chronic pain; I11.0 Hypertensive heart disease with heart failure; I50.9 Heart failure, unspecified; I25.2 Old myocardial infarction; J43.9 Emphysema, unspecified; J45.909 Unspecified asthma, uncomplicated; K21.9 Gastro-esophageal reflux disease without esophagitis; Z79.82 Long term (current) use of aspirin; Z88.5 Allergy status to narcotic agent
CPT/HCPCS: 80053; 81003; 85025; 99281; 99284

== ENCOUNTER 2017-10-19 15:16 | Emergency (ER) | payer OTHER ==
[~2017-10-19] VITALS: Ht 149.9 cm; Wt 97.0 kg
[2017-10-19 16:39] LABS: BASOPHIL (%) 0.2 % (0-1); EOSINOPHIL (%) 2.8 % (0-5); EOSINOPHIL COUNT 0.3 K/uL (0-0.3); HEMATOCRIT 35.9 % (36.0-46.0); HEMOGLOBIN 11.4 G/DL (11.9-15.5); IMMATURE GRANULOCYTE (%) 0.4 % (0.0-0.7); LYMPHOCYTE (%) 12.4 % (15-42); LYMPHOCYTE COUNT 1.5 K/uL (1.0-2.8); MCH 21.4 PG (29.0-34.0); MCHC 31.8 G/DL (30.0-36.0); MCV 67.5 FL (83-99); MONOCYTE (%) 5.6 % (3-12); MONOCYTE COUNT 0.7 K/uL (0-0.8); NEUTROPHIL (%) 78.6 % (45-76); NEUTROPHIL COUNT 9.6 K/uL (1.8-6.4); PLATELET COUNT 255 K/uL (156-360); RBC DIS.WIDTH-CV 17.9 % (11.8-14.6); RBC DIS.WIDTH-SD 41.9 % (39-53); RED BLOOD COUNT 5.32 M/uL (3.80-5.20); WHITE BLOOD COUNT 12.2 K/uL (4.1-10.2)
[2017-10-19 16:44] LABS: CHLORIDE 101 mEq/L (99-109); POTASSIUM 4.4 mEq/L (3.7-5.4); SODIUM 138 mEq/L (136-147)
[2017-10-19 16:45] LABS: GLUCOSE 208 mg/dL (70-99)
[2017-10-19 16:49] LABS: CREATININE 0.9 mg/dL (0.6-1.3); GFR ESTIMATE (CALCULATED) > 59 mL/min/
[2017-10-19 16:50] LABS: UREA NITROGEN (BUN) 11 mg/dL (9-23)
[2017-10-19 18:45] VITALS: BP 145/69
== END 2017-10-19 18:48 | disposition home or self-care (01) ==
LOC: EME 15:16
PROVIDERS: Emergency Medicine
DX: E11.621 Type 2 diabetes mellitus with foot ulcer (principal); L97.429 Non-pressure chronic ulcer of left heel and midfoot with unspecified severity; E11.51 Type 2 diabetes mellitus with diabetic peripheral angiopathy without gangrene; I87.2 Venous insufficiency (chronic) (peripheral); E11.22 Type 2 diabetes mellitus with diabetic chronic kidney disease; I13.0 Hypertensive heart and chronic kidney disease with heart failure and stage 1 through stage 4 chronic kidney disease, or unspecified chronic kidney disease; I50.9 Heart failure, unspecified; N18.9 Chronic kidney disease, unspecified; F32.9 Major depressive disorder, single episode, unspecified; J43.9 Emphysema, unspecified; J45.909 Unspecified asthma, uncomplicated; I25.2 Old myocardial infarction; K21.9 Gastro-esophageal reflux disease without esophagitis; G47.30 Sleep apnea, unspecified; Z79.82 Long term (current) use of aspirin; Z79.4 Long term (current) use of insulin; Z88.5 Allergy status to narcotic agent
CPT/HCPCS: 80048; 85025; 86850; 86900; 86901; 99281; 99285